=== PATIENT | male | born 1930 | race African-American/Black ===

== ENCOUNTER 2017-06-25 08:14 | Emergency (ER) | payer MEDICARE, OTHER ==
[~2017-06-25] VITALS: Ht 182.9 cm; Wt 90.7 kg
--- OUTSIDE RECORDS SUMMARY | 2017-06-25 08:17 | XMS REPORT | Clinical Summary ---
Author Author [facility] Address Unknown Phone Unavailable Care Team Providers Care Mathematical Scientist Name Role Phone Isaías Leyva MD PCP Allergies Active Allergy Reactions Severity Noted Date Comments Codeine Other (See Comments) 04/24/2016 Hallucinations Other Rash Low 04/04/2016 Paper tape - break out, gets bumps Current Medications Prescription Sig. Disp. Refills Start End Date Status Date finasteride (PROSCAR) 5 Take 5 mg by mouth daily. Active mg tablet finasteride (PROSCAR) 5 TK 1 T PO QD 12 05/26/19 01/06/20 Discontin mg tablet 17 17 ued oxybutynin (DITROPAN) 5 Take 1 tablet (5 mg 60 tablet 1 05/31/1902/08 MG tablet total) by mouth 2 (two) 17 17 times a day for 60 days. traMADol (ULTRAM) 50 mg Take 0.5 tablets (25 mg 40 tablet 0 06/22/19 07/07/19 tablet total) by mouth every 6 17 17 (six) hours as needed for moderate pain for up to 15 days. oxybutynin (DITROPAN) 5 10/06/19 01/06/20 Discontin MG tablet 17 17 ued clopidogrel (PLAVIX) 75 Take 1 tablet (75 mg 90 tablet 3 10/09/19 Discontin mg tablet total) by mouth daily. 17 17 ued oxybutynin (DITROPAN) 5 Take 5 mg by mouth 2 02/01/20 Discontin MG tablet (two) times a day. 17 ued DOXERCALCIFEROL (HECTOROL Infuse 1 Dose into a 03/23/20 Discontin IV) venous catheter 3 (three) 17 ued times a week. At dialysis IRON SUCROSE COMPLEX Infuse 1 Dose into a 04/30/19 Discontin (VENOFER IV) venous catheter once a 18 ued week. ipratropium (ATROVENT) Take 2.5 mL (0.5 mg 150 mL 0 02/01/20 Discontin 0.02 % nebulizer solution total) by nebulization 2 17 17 ued (two) times a day for 30 days. Lactobacillus Take 1 tablet by mouth 3 90 tablet 0 02/01/20 Discontin acidoph-L.bulgar (three) times a day for 17 17 ued (FLORANEX) 1 million cell 30 days. tablet acetylcysteine (MUCOMYST) Take 4 mL (400 mg total) 720 mL 0 02/01/20 03/23/20 Discontin 100 mg/mL (10 %) by nebulization every 4 17 17 ued nebulizer solution (four) hours for 30 days. budesonide (PULMICORT) Take 2 mL (0.5 mg total) 60 mL 0 02/01/2005/11 Discontin 0.5 mg/2 mL nebulizer by nebulization once 17 17 ued solution daily for 30 days. darbepoetin Inject 0.5 mL (100 mcg 2 mL 0 02/01/20 03/22/20 Discontin brandon-polysorbate total) under the skin 17 17 ued (ARANESP) 100 mcg/0.5 mL once a week at 4pm for 30 syringeIndications: ESRD days Indications: ESRD on on Dialysis Dialysis. ipratropium (ATROVENT) Take 2.5 mL (0.5 mg 300 mL 0 03/22/20 Discontin 0.02 % nebulizer solution total) by nebulization 17 18 ued every 6 (six) hours for 30 days. ondansetron (ZOFRAN) 4 Infuse 2 mL (4 mg total) 20 mL 03/22/20 Discontin mg/2 mL injection into a venous catheter 17 18 ued every 8 (eight) hours as needed for nausea or vomiting for up to 30 days. metoprolol (LOPRESSOR) 5 Infuse 2.5 mL (2.5 mg 300 mL 0 03/22/20 Discontin mg/5 mL injection total) into a venous 17 17 ued catheter every 6 (six) hours for 30 days. darbepoetin Inject 0.5 mL (100 mcg 2 mL 0 03/22/20 04/30/19 Discontin brandon-polysorbate total) under the skin 17 18 ued (ARANESP) 100 mcg/0.5 mL once a week at 4pm for 30 syringeIndications: ESRD days Indications: ESRD on on Dialysis Dialysis. hydrocortisone sodium Infuse 0.25 mL (12.5 mg 7.5 mL 0 03/23/20 Discontin succinate (Solu-CORTEF) total) into a venous 17 17 ued 100 mg/2 mL recon soln catheter daily for 30 days. budesonide (PULMICORT) Take 2 mL (0.5 mg total) 60 mL 0 03/22/2001/09 Discontin 0.5 mg/2 mL nebulizer by nebulization once 17 18 ued solution daily for 30 days. HEPARIN SODIUM,PORCINE Inject 1 mL (5,000 Units 60 mL 0 03/22/2001/09 Discontin (HEPARIN, PORCINE,) 5,000 total) under the skin 17 18 ued unit/mL injection every 12 (twelve) hours for 30 days. famotidine (PEPCID) 20 Infuse 1 mL (10 mg total) 30 mL 0 03/23/20 Discontin mg/2 mL solution into a venous catheter 17 18 ued daily for 30 days. insulin lispro (HumaLOG) Inject 0-5 Units under 10 mL 12 03/22/20 Discontin 100 unit/mL injection the skin every 4 (four) 17 18 ued hours for 30 days. sennosides (SENOKOT) 8.8 Take 10 mL (17.6 mg 600 mL 0 03/22/2004/30 Discontin mg/5 mL syrup total) by mouth 2 (two) 17 18 ued times a day for 30 days. piperacillin-tazobactam Infuse 2.25 g into a 03/22/20 04/01/20 (ZOSYN) IVPB 2.25 grams venous catheter every 8 17 17 Add-[place] in 50 mL (eight) hours for 10 days. TPN FOR DISCHARGE See most recent TPN 1 Package 0 03/22/20 04/30/19 Discontin order. 17 18 ued acetaminophen (TYLENOL) Take 20.3 mL (650 mg 04/30/19 05/30/19 650 mg/20.3 mL solution total) by mouth every 4 18 18 (four) hours as needed (pain and fever) for up to 30 days. ondansetron (ZOFRAN) 4 Infuse 2 mL (4 mg total) 20 mL 04/30/19 mg/2 mL injection into a venous catheter 18 18 every 8 (eight) hours as needed for nausea or vomiting for up to 30 days. ipratropium-albuterol Take 3 mL by nebulization 04/30/19 05/30/19 (DUO-NEB) 0.5-2.5 mg/mL every 6 (six) hours as 18 18 nebulizer needed for wheezing or shortness of breath for up to 30 days. metoprolol tartrate Take 1 tablet (25 mg 60 tablet 0 04/30/19 (LOPRESSOR) 25 mg tablet total) by mouth 2 (two) 18 18 times a day for 30 days. apixaban (ELIQUIS) 2.5 mg Take 1 tablet (2.5 mg 60 tablet 0 04/30/19 05/30/19 tablet total) by mouth 2 (two) 18 18 times a day for 30 days. budesonide (PULMICORT) Take 2 mL (0.5 mg total) 60 mL 0 04/30/1912/09 0.5 mg/2 mL nebulizer by nebulization once 18 18 solution daily for 30 days. famotidine (PEPCID) 20 Infuse 1 mL (10 mg total) 30 mL 0 04/30/19 mg/2 mL solution into a venous catheter 18 18 daily for 30 days. polyethylene glycol Take 17 g by mouth 2 60 packet 0 04/30/19 (MIRALAX) 17 gram packet (two) times a day for 30 18 18 days. acetylcysteine (MUCOMYST) Take 4 mL by nebulization 04/30/19 05/30/19 200 mg/mL (20 %) 2 (two) times a day for 18 18 nebulizer solution 30 days. 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 Hyperglycemia 02/27/2017 Electrolyte and fluid disorder 02/27/2017 Moderate protein-calorie malnutrition 02/27/2017 Chronic respiratory failure 02/27/2017 Mobitz (type) I (Wenckebach's) atrioventricular block 02/27/2017 Bradycardia 02/27/2017 Pneumoperitoneum 02/24/[address] 01/29/2017 Sinus bradycardia 01/26/2017 Mucus plugging of bronchi 01/22/2017 Severe protein-calorie malnutrition 01/22/2017 Pneumothorax on right 01/22/2017 A-fib 01/17/2017 Hypophosphatemia 01/16/2017 Hematoma of right lower extremity 01/15/2017 Hx of aortic valve replacement 01/15/2017 Encephalopathy 01/09/2017 Atherosclerosis 01/09/2017 Altered mental status, unspecified 01/08/2017 Acute on chronic respiratory failure with hypercapnia 01/08/2017 Septic shock 01/08/2017 Leukocytosis 01/08/2017 Delirium 01/05/2017 Bladder tumor 04/12/2016 Gross hematuria 04/09/2016 Pleural effusion, right 04/05/2016 L BCV occluded around TDC, R BCV occlusion, L axillary vein with occluded stents 2015 L brach artery mild stenosis, R ulnar artery occlusion 03/11/2016 Essential hypertension 11/08/2015 Anemia in chronic kidney disease 11/08/2015 ESRD (end stage renal disease) on dialysis 2004, TTS 11/07/2015 Last Assessment & Plan: E. R arm swelling, s/p insertion of L arm HeRO 06/20/16. I advised pt to wear a compression sleeve and other lymphedema treatments for his arm. Rx Plavix, if he could tolerate it. 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 Given previous R pleural effusion and bladder tumor, will do CT of the chest. 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 01/15/2017 Lactic acidosis 01/08/2017 01/15/2017 End stage renal disease 04/04/2016 10/08/2016 Encounters Date Type Specialty Care Team Description 04/16/2017 Anesthesia Cardiothoracic Surgery Kendra Castellanos, METAL MOULDER Event 04/16/2017 Procedure Pass Cardiothoracic Surgery 04/16/2017 Surgery Cardiothoracic Surgery Adeline Chahal MD VENOGRAM, EXTREMITY possible angioplasty possible stent right upper extremity 04/15/2017 Hospital Critical Care Medicine Jose E Huizar MD SVC syndrome (Primary Dx) - Encounter 04/30/2017 02/23/2017 [facility] Critical Care Medicine Sheryl Palm MD Acute respiratory failure - Encounter with hypercapnia (Primary 03/23/2017 Dx) 02/20/2017 Telephone Cardiovascular Adeline Chahal MD 01/29/2017 Anesthesia Critical Care Medicine Shayy Mcdaniel MD Event 01/29/2017 Procedure Pass Plastic Surgery 01/29/2017 Surgery Plastic Surgery Toshia Ordonez, BEDSIDE TRACHEOSTOMY MD 01/13/2017 Anesthesia Critical Care Medicine Micheal Das, Event METAL MOULDER 01/13/2017 Procedure Pass Cardiothoracic Surgery 01/13/2017 Surgery Cardiothoracic Surgery Adeline Chahal MD PLACEMENT , FILTER, INFERIOR VENA CAVA 01/10/2017 Procedure Pass Critical Care Medicine 01/05/2017 [facility] Critical Care Medicine Arturo Foster MD ESRD ( end stage renal - Encounter Sheryl Palm MD disease) on dialysis 01/31/20172004, TTS (Primary Dx); Delirium; ESRD (end stage renal disease); Acute respiratory failure with hypercapnia; Lactic acidosis; Septic shock; Leukocytosis, unspecified type; Essential hypertension; Altered mental status, unspecified; Anemia in chronic kidney disease; Superior vena cava obstruction; Gross hematuria; Acute bleeding; Encephalopathy 10/12/2016 Hospital Radiology Gonzales Null MD ESRD (end stage renal Encounter disease) on dialysis 2004, TTS 10/12/2016 Ancillary Cardiovascular Gonzales Null MD ESRD (end stage renal Orders disease) on dialysis 2004, TTS 10/12/2016 Orders Only Cardiovascular Gonzales Null MD Pleural effusion (Primary Dx) 10/08/2016 Lab Lab Gonzales Null MD End stage renal disease (Primary Dx); Encounter for extracorporeal dialysis 10/08/2016 Office Visit Gonzales Blanc MD ESRD ( end stage renal disease) on dialysis 2004, TTS (Primary Dx) 09/27/2016 Telephone Gonzales Blanc MD 09/27/2016 Orders Only Cardiovascular Gonzales Null MD Arm swelling (Primary Dx) 07/23/2016 Hospital Radiology Felipe [place], 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 07/23/2016 Office Visit Cardiovascular Gavino Wang, Acute pain of left PLANT CARE WORKER 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 (Primary Dx) after 06/24/2016 Family History Relation Name Status Comments Mother Social History Tobacco Use Types Packs/Day Years Used Date Former Smoker Smokeless Tobacco: Never Used Comments: only smoked briefly and stopped smoking many years ago per pt, cannot remember Alcohol Use Drinks/Week oz/Week Comments No Sex Assigned at Date Recorded Not on file Last Filed Vital Signs Vital Sign Reading Time Taken Blood Pressure 106/49 04/30/2017 6:07 PM [employer] [employer] Pulse 90 04/30/2017 6:07 PM [employer] [employer] Temperature 36.2 C (97.2 F) 04/30/2017 4:30 PM [employer] [employer] Respiratory Rate 21 04/30/2017 5:00 PM [employer] Oxygen Saturation 100% 04/30/2017 5:00 PM [employer] [employer] Inhaled Oxygen - - Concentration Weight 72.7 kg (160 lb 4.4 oz) 04/30/2017 5:00 AM [employer] [employer] Height 182.9 cm (6') 04/15/2017 9:30 PM [employer] [employer] Body Mass Index 21.74 04/30/2017 5:00 AM [employer] [employer] Plan of Treatment Health Maintenance Due Date Last Done Comments ZOSTER VACCINE 1990 PNEUMOCOCCAL 1995 POLYSACCHARIDE VACCINE AGE 65 AND OVER PNEUMOCOCCAL-13 1995 INFLUENZA VACCINE 11/20/2016 Implants Implanted Type Area Senior Database Engineer Device Expiration Model / Identifier Date Serial / Lot Super Hero Ally Revision Kit Balloon Left: Arm, [employer] 2017 [id number] / Implanted: Qty: 1 on 06/20/2016 by [employer] / Gonzales Null MD s [id number] Clip Ligtng Weck Hemoclip Plus W/ Medical Left: Arm, TELEFLEX 2020 [id number] / Tape Ti Med - [id number] Clips for Upper MEDICAL / Implanted: Qty: 2 on 04/04/2016 by Internal [id number] Gonzales Null MD Use Clip Ligtng Weck Hemoclip Plus W/ Medical Left: Arm, WECK CLOSURE [id number] / Tape Ti Sm - [id number] Clips for Upper SYSTEMS / Implanted: Qty: 2 on 04/04/2016 by Internal [id number] Gonzales Null MD Use Clip Ligtng Weck Hemoclip Plus W/ Medical Left: Arm, TELEFLEX 2020 [id number] / Tape Ti Med - [id number] Clips for Upper MEDICAL / Implanted: Qty: 1 on 06/20/2016 by Internal [id number] Gonzales Null MD Use Clip Ligtng Weck Hemoclip Plus W/ Medical Left: Arm, WECK CLOSURE 04/2020 [id number] / Tape Ti Sm - [id number] Clips for Upper SYSTEMS / Implanted: Qty: 1 on 06/20/2016 by Internal [id number] Gonzales Null MD Use Catheter Cv Powerline Dlmn Al 6fr - Surgical N/A: N/A BARD ACCESS [id number] / [id number] Implants; SYSTEMS / Implanted: 03/11/2017 (Quantity not Expanders; on file) Extenders; Surgical Wires Catheter Angio Snuff Grinder Ii 5fr 65cm Surgical [facility] PERIPHERAL [id number] Selc Braidd Torque Eliezer - [id number] Implants; INTERVENTION / Implanted: Qty: 1 on 04/16/2017 by Expanders; DIOR HERRERA / Adeline Chahal MD Extenders; [id number] Surgical Wires Catheter Angio Snuff Grinder Ii 5fr 100cm Surgical [facility] PERIPHERAL [id number] Selc Braidd Torque Eliezer - [id number] Implants; INTERVENTION / Implanted: Qty: 1 on 04/16/2017 by Expanders; VASCULAR JAVIER / Adeline Chahal MD Extenders; [id number] Surgical Wires Catheter Compliance Representative 4x75cm 12mm Conquest - Surgical BARD PERIPHERAL [id number] / [id number] Implants; VASCULAR / Implanted: Qty: 1 on 04/16/2017 by Expanders; [id number] Adeline Chahal MD Extenders; Surgical Wires Catheter Compliance Representative 6.5fr 75x4cm 14mm Surgical BARD PERIPHERAL [id number] / [place] - [id number] Implants; VASCULAR / Implanted: Qty: 1 on 04/16/2017 by Expanders; [id number] Adeline Chahal MD Extenders; Surgical Wires Stent Bili [id number] 8x60mm W/ Surgical Left: BARD PERIPHERAL 2016 [id number] / Cath 80cm - [id number] Stents Thigh VASCULAR / Implanted: 11/08/2015 (Quantity not [id number] on file) Cook Celect Isabela Navalign Vascular N/A: N/A COOK PERIPHERAL 10/23 [id number] / Femoral Vena Cava Filter - Filter INTERVENTION / [id number] Implanted: Qty: 1 on 01/13/2017 by Adeline Chahal MD Graft Vasclr Acuseal 40cm 6mm - Vascular Left: Arm, W L GORE 2018 [id number] Graft Upper / Implanted: 06/20/2016 (Quantity not [id number] on file) [id number] Component Chang Otflw Hero - Vascular Left: Arm, [employer] 2017 HERO 1001 [id number] Graft Upper SYSTEMS INC / Implanted: 06/20/2016 (Quantity not / on file) [id number] Valve 8mm X 4cm Balloon, 6fr Sheath, 75cm [place] PERIPHERAL 02/20/2020 [id number] / [place], Cnquest 40 Compliance Representative Dilatation VASCULAR INC / Catheter [id number] Implanted: Qty: 1 on 04/16/2017 by Adeline Chahal MD 4mm X 100mm Balloon, 135cm Shaft, [place] [id number] [place] Otw Compliance Representative Balloon Dilatation SCIENTIFIC/CARMEN [id number] / Catheter, 0.035in Max Guidewire PHERAL VASCULAR / Implanted: Qty: 1 on 04/16/2017 by ([employer]) Adeline Chahal MD Procedures Procedure Name Priority Date/Time Associated Diagnosis Comments HEMODIALYSIS Routine 04/30/2017 8:51 AM [facility] [employer] HEMODIALYSIS Routine 04/27/2017 11:27 AM [employer] [employer] HEMODIALYSIS Routine 04/25/2017 8:23 AM [employer] HEMODIALYSIS Routine 04/23/2017 9:24 AM [employer] [employer] HEMODIALYSIS Routine 04/20/2017 7:27 AM [employer] HEMODIALYSIS Routine 04/18/2017 8:30 AM [employer] CONSULT TO OSTOMY CARE Routine 04/17/2017 NURSE 10:49 AM [employer] HEMODIALYSIS Routine 04/16/2017 12:20 PM [employer] [employer] HEMODIALYSIS Routine 03/23/2017 9:57 AM [employer] HEMODIALYSIS Routine 03/21/2017 12:15 PM [employer] HEMODIALYSIS Routine 03/19/2017 8:06 AM [employer] HEMODIALYSIS Routine 03/16/2017 2:21 PM [employer] HEMODIALYSIS Routine 03/13/2017 5:39 PM [employer] [employer] HEMODIALYSIS Routine 03/11/2017 7:30 AM [employer] [employer] HEMODIALYSIS Routine 03/08/2017 8:19 AM [employer] BRONCHOSCOPY Routine 03/08/2017 Acute respiratory failure Results for this 1:40 AM [employer] with hypercapnia procedure are in the results section. HEMODIALYSIS Routine 03/06/2017 8:28 AM [employer] [employer] HEMODIALYSIS Routine 03/04/2017 8:06 AM [employer] [employer] HEMODIALYSIS Routine 03/02/2017 8:55 AM [employer] [employer] HEMODIALYSIS Routine 02/28/2017 11:29 AM [employer] [employer] HEMODIALYSIS Routine 02/26/2017 12:58 PM [employer] [employer] HEMODIALYSIS Routine 01/30/2017 1:37 PM CDT HEMODIALYSIS Routine 01/30/2017 1:03 PM CDT BEDSIDE TRACHEOSTOMY 01/29/2017 Respiratory Failure 11:15 AM CDT HEMODIALYSIS Routine 01/28/2017 1:18 PM CDT HEMODIALYSIS Routine 01/25/2017 11:33 AM CDT HEMODIALYSIS Routine 01/23/2017 8:58 AM CDT BRONCHOSCOPY Routine 01/22/2017 Acute respiratory failure Results for this 1:12 PM CDT with hypercapnia procedure are in the results section. BRONCHOSCOPY Routine 01/21/2017 Acute respiratory Results for this 6:48 PM CDT failure, unspecified procedure are in the whether with hypoxia or results section. hypercapnia HEMODIALYSIS Routine 01/21/2017 7:43 AM CDT HEMODIALYSIS Routine 01/18/2017 7:53 AM CDT HEMODIALYSIS Routine 01/16/2017 10:28 AM CDT AK INSERT NON-TUNNEL CV Routine 01/15/2017 ESRD (end stage renal Results for this CATH 10:07 PM CDT disease) on dialysis procedure are in the 2005, TTS results section. AK INSERT NON-TUNNEL CV Routine 01/15/2017 Acute respiratory failure Results for this CATH 4:42 PM CDT with hypercapnia procedure are in the results section. INTUBATION Routine 01/14/2017 Acute respiratory failure Results for this 6:50 PM CDT with hypercapnia procedure are in the ESRD (end stage renal results section. disease) on dialysis 2004, TTS Altered mental status, unspecified Acute bleeding Encephalopathy AK INSERT Routine 01/14/2017 Septic shock Results for this NEEDLE,INTRAOSSEOUS 6:07 PM CDT procedure are in the INFUSN results section. HEMODIALYSIS Routine 01/14/2017 9:58 AM CDT HEMODIALYSIS Routine 01/12/2017 4:53 PM CDT HEMODIALYSIS Routine 01/10/2017 11:03 AM CDT ECHOCARDIOGRAM 2D Routine 01/09/2017 Results for this COMPLETE W MMODE SPECTRAL 4:09 PM CDT procedure are in the COLOR DOPPLER (02468) results section. AK INSERT NON-TUNNEL CV Routine 01/08/2017 Delirium Results for this CATH 9:10 PM CDT Acute respiratory failure procedure are in the with hypercapnia results section. Lactic acidosis Septic shock Leukocytosis, unspecified type ESRD (end stage renal disease) on dialysis 2005, TTS Essential hypertension HEMODIALYSIS Routine 01/08/2017 9:40 AM CDT after 06/24/2016 Results * POC glucose (04/30/2017 4:42 PM) Only the most recent of 395 results within the time period is included. Component Value Ref Range POC glucose 108 (H) 65 - 99 mg/dL Comment: [facility] Notified RN Meter ID: [id number] Pest Control Applicator: Crispin Angelo Specimen Performing Laboratory [facility] DEPARTMENT OF PATHOLOGY AND GENOMIC MEDICINE [address] [place] [id number] * Estimated GFR (04/30/2017 3:30 AM) Only the most recent of 82 results within the time period is included. Component Value Ref Range GFR Non Af Amer 17 (A) mL/min/1.73 m2 GFR Af Amer 21 (A) mL/min/1.73 m2 Comment: Chronic kidney disease: <60 mL/min/1.73m2 Kidney failure: <15 mL/min/1.73m2 The estimated GFR is calculated from the IDMS-traceable Modification of Diet in Renal Disease Equation. The accuracy of the calculation is poor when the creatinine is normal. Calculated values >90 mL/min/1.73m2 are not reported. This equation has not been validated in children (<18 years), women, the elderly (>70 years), or ethnic groups other than Caucasians and Americans. Specimen Performing Laboratory Plasma specimen [facility] DEPARTMENT OF PATHOLOGY AND GENOMIC MEDICINE [address] [place] [phone] * CBC with platelet and differential (04/30/2017 3:30 AM) Only the most recent of 74 results within the time period is included. Component Value Ref Range WBC 10.12 4.50 - 11.00 k/uL RBC 3.16 (L) 4.40 - 6.00 m/uL HGB 9.0 (L) 14.0 - 18.0 g/dL HCT 30.1 (L) 41.0 - 51.0 % MCV 95.3 82.0 - 100.0 fL MCH 28.5 27.0 - 34.0 pg MCHC 29.9 (L) 31.0 - 37.0 g/dL RDW - SD 57.4 (H) 37.0 - 55.0 fL MPV 10.3 8.8 - 13.2 fL Platelet count 178 150 - 400 k/uL Nucleated RBC 0.00 /100 WBC Neutrophils 69.3 (H) 39.0 - 69.0 % Lymphocytes 16.4 (L) 25.0 - 45.0 % Monocytes 7.5 0.0 - 10.0 % Eosinophils 6.4 (H) 0.0 - 5.0 % Basophils 0.1 0.0 - 1.0 % Immature granulocytes 0.3Comment: "Immature granulocytes" 0.0 - 1.0 % (promyelocytes, myelocytes, metamyelocytes) Specimen Performing Laboratory Blood [facility] DEPARTMENT OF PATHOLOGY AND [facility] MEDICINE [address] [place], [place] [id number] * Phosphorus level (04/30/2017 3:30 AM) Only the most recent of 70 results within the time period is included. Component Value Ref Range Phosphorus 4.1 2.4 - 4.5 mg/dL Specimen Performing Laboratory Plasma specimen [facility] DEPARTMENT OF PATHOLOGY AND [place] [id number] * Magnesium level (04/30/2017 3:30 AM) Only the most recent of 66 results within the time period is included. Component Value Ref Range Magnesium 1.9 1.6 - 2.4 mg/dL Specimen Performing Laboratory Plasma specimen [facility] DEPARTMENT OF PATHOLOGY AND [facility] [address] [place], [place] [id number] * Ionized calcium (04/30/2017 3:30 AM) Only the most recent of 21 results within the time period is included. Component Value Ref Range pH 7.33 Ionized calcium 1.09 (L) 1.11 - 1.32 mmol/L Specimen Performing Laboratory Plasma specimen [facility] DEPARTMENT OF PATHOLOGY AND [facility] [address] [place], [place] [id number] * Basic metabolic panel (04/30/2017 3:30 AM) Only the most recent of 72 results within the time period is included. Component Value Ref Range Sodium 126 (L) 135 - 148 mEq/L Potassium 4.0 3.5 - 5.0 mEq/L Chloride 88 (L) 98 - 112 mEq/L CO2 29 24 - 31 mEq/L Anion gap 9 7 - 15 mEq/L Comment: Starting from July , anion gap calculation no longer incorporates potassium. Please note the change. BUN 31 (H) 8 - 23 mg/dL Creatinine 3.4 (H) 0.7 - 1.2 mg/dL Glucose 108 (H) 65 - 99 mg/dL Calcium 7.7 (L) 8.8 - 10.2 mg/dL Specimen Performing Laboratory Plasma specimen [facility] DEPARTMENT OF PATHOLOGY AND GENOMIC MEDICINE [address] [place] [address] * XR Chest 1 Vw Portable (04/26/2017 10:03 AM) Only the most recent of 37 results within the time period is included. Specimen Performing Laboratory [facility] [address] [place] [address] Narrative EXAMINATION:XR CHEST 1 VW PORTABLE CLINICAL HISTORY:Post-op surgery, SHORTNESS OF BREATH COMPARISON:04/23/2017 IMPRESSION: 1.Sternotomy wires are present.The patient is status post aortic valve replacement. 2.Left IJ catheter extends into the right atrium. The tracheostomy tube remains in satisfactory position. 3.The heart size is at the upper limits of normal.The aorta is atherosclerotic. 4.Vascular congestion has improved. There is improved aeration in the right lung. Right basilar volume loss and effusion are decreased. There is minimal volume loss at the left lung base with a tiny left pleural effusion. [facility]-[id number] Procedure Note Interface, Radiology Results Incoming - 04/26/2017 10:23 AM [facility] [employer] EXAMINATION: XR CHEST 1 VW PORTABLE CLINICAL HISTORY: Post-op surgery, SHORTNESS OF BREATH COMPARISON: 04/23/2017 IMPRESSION: 1. Sternotomy wires are present. The patient is status post aortic valve replacement. 2. Left IJ catheter extends into the right atrium. The tracheostomy tube remains in satisfactory position. 3. The heart size is at the upper limits of normal. The aorta is atherosclerotic. 4. Vascular congestion has improved. There is improved aeration in the right lung. Right basilar volume loss and effusion are decreased. There is minimal volume loss at the left lung base with a tiny left pleural effusion. [facility]-[id number] * Venous blood gas (04/26/2017 5:00 AM) Only the most recent of 8 results within the time period is included. Component Value Ref Range pH, venous 7.39 7.32 - 7.42 pCO2, venous 53 (H) 45 - 51 mmHg pO2, venous 28 25 - 40 mmHg Base excess, venous 6 (H) -2 - 2 meq/L O2 saturation, venous 56 40 - 70 % Bicarbonate, venous 31.2 (H) 21.0 - 28.0 mmol/L Specimen Performing Laboratory Blood [facility] DEPARTMENT OF PATHOLOGY AND GENOMIC MEDICINE [address] [place] [address] * Sputum culture (04/24/2017 11:15 PM) Only the most recent of 6 results within the time period is included. Component Value Ref Range Sputum culture isolate Normal oral colleen isolated. Comment: Specimen Information Specimen Source: Sputum Specimen Site: Expectorated Specimen Performing Laboratory Sputum - Expectorated [facility] DEPARTMENT OF PATHOLOGY AND GENOMIC MEDICINE [address] [place] [address] * Gram stain (04/24/2017 11:15 PM) Only the most recent of 10 results within the time period is included. Component Value Ref Range Gram stain isolate No WBC's Few Gram positive rods Comment: Specimen Information Specimen Source: Sputum Specimen Site: Expectorated Specimen Performing Laboratory Sputum - Expectorated [facility] DEPARTMENT OF PATHOLOGY AND GENOMIC MEDICINE [address] [place] [address] * XR Abdomen 1 Vw Portable (04/22/2017 7:23 PM) Only the most recent of 16 results within the time period is included. Specimen Performing Laboratory [facility] [address] [place] [address] Narrative EXAMINATION:XR ABDOMEN 1 VW PORTABLE CLINICAL HISTORY:CONSTIPATION, Vomiting COMPARISON:03/17/2017 IMPRESSION: The bowel gas pattern is nonspecific. Moderate fecal material in the right colon. Gaseous left colon and rectum. Gaseous loops of central small bowel loops also noted. Findings are suggestive of ileus though early bowel obstruction not excluded. IVC filter is present. Right femoral catheter. Degenerative changes of osseous structures. [facility]-[id number] Procedure Note Hm Interface, Radiology Results Incoming - 04/22/2017 7:58 PM DRAPERY HEMMER AUTOMATIC EXAMINATION: XR ABDOMEN 1 VW PORTABLE CLINICAL HISTORY: CONSTIPATION, Vomiting COMPARISON: 03/17/2017 IMPRESSION: The bowel gas pattern is nonspecific. Moderate fecal material in the right colon. Gaseous left colon and rectum. Gaseous loops of central small bowel loops also noted. Findings are suggestive of ileus though early bowel obstruction not excluded. IVC filter is present. Right femoral catheter. Degenerative changes of osseous structures. [facility]-[id number] * Partial thromboplastin time, activated (04/21/2017 3:00 AM) Only the most recent of 26 results within the time period is included. Component Value Ref Range PTT 40.4 (H) 23.0 - 36.0 sec Comment: PTT therapeutic range for unfractionated heparin is 61.0-112.0 seconds which corresponds to Anti-Xa 0.3-0.7 U/ml. Specimen Performing Laboratory Blood [facility] DEPARTMENT OF PATHOLOGY AND [facility] [address] [place] [address] * CBC hemogram (04/17/2017 3:30 AM) Only the most recent of 8 results within the time period is included. Component Value Ref Range WBC 6.17 4.50 - 11.00 k/uL RBC 2.78 (L) 4.40 - 6.00 m/uL HGB 8.2 (L) 14.0 - 18.0 g/dL HCT 26.6 (L) 41.0 - 51.0 % MCV 95.7 82.0 - 100.0 fL MCH 29.5 27.0 - 34.0 pg MCHC 30.8 (L) 31.0 - 37.0 g/dL RDW - SD 61.1 (H) 37.0 - 55.0 fL MPV 10.0 8.8 - 13.2 fL Platelet count 180 150 - 400 k/uL Nucleated RBC 0.00 /100 WBC Specimen Performing Laboratory Blood [facility] DEPARTMENT OF PATHOLOGY AND GENOMIC MEDICINE [address] [place] [address] * Anti Xa, low molecular weight (04/16/2017 8:52 PM) Component Value Ref Range Heparin name Lovenox Anti Xa, low molecular 0.34 (L) 0.60 - 1.00 U/mL weight Comment: Specimen must be drawn at least 4 hours post dose following a minimum of 3 doses. Therapeutic Range: 0.60 - 1.00 U/mL Specimen Performing Laboratory Blood [facility] DEPARTMENT OF PATHOLOGY AND GENOMIC MEDICINE [address] [place] [address] * Pv duplex venous upper extremity (04/16/2017 8:44 PM) Only the most recent of 3 results within the time period is included. Specimen Performing Laboratory [facility] [id number] [facility]. [place] [id number] Narrative Vascular Ultrasound Laboratory Upper Extremity Venous Report [id number] [facility] [address], [place] [id number] Pat.Name:SHARAD FONTAINE Pat.ID:[id number] St.Date: 04/16/2017Refer.MD:JOSE E HUIZAR MD Exam Time: 8:13:00 PMStudy Type:UE Venous Height:73inDOBAge:1930,86Y Sex: MALESonogrphr: Preeti Anand RVT Pat. Stat.:Inpatient Room:[place] [address] TapeVol: , CPT - 4: 60718 Echo Event ID:[id number] Order ID:[id number] Reason for Study:Bilateral arm swelling. 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 Race:B SUMMARY: DUPLEX SCAN OBSERVATIONS Right Left IJPartial Partial SubclavianObstructed Normal AxillaryPartialNot Visualized BrachialNormal Normal BasilicNot Visualized Not Visualized CephalicNot Visualized Not Visualized RIGHT:The internal jugular vein is small and partially compressible with echogenic material within the lumen. Colorflow and Doppler signals are decreased. The subclavian vein is non-compressible with echogenic material filling the lumen and colorflow and Doppler signals are absent. There is normal compressibility with colorflow and Doppler signals noted in the remaining visualized veins. Multiple grafts are noted. LEFT:The internal jugular vein is small and partially compressible with echogenic material within the lumen. Colorflow and Doppler signals are decreased. The axillary, cephalic and basilic vein are not visualized.There is normal compressibility with colorflow and Doppler signals noted in the remaining visualized veins. Multiple grafts are noted. PRELIMINARY FINDINGS 1. Partial deep venous thrombosis of the internal jugular vein,bilaterally. 2. Partial deep venous thrombosis of the right axillary vein. 3. 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 Results given to NETO Roa at 8:22 pm on 04/16/17. PHYSICIAN INTERPRETATION Venous examination of the both upper extremities and neck demonstratedbilateral partial deep venous thrombosis of the internal jugular vein, a partial deep venous thrombosis of the right axillary vein and adeep venous thrombosis of the right subclavian vein. Signed 04/17/2017 10:41 AM Adeline Chahal MD, RPVI Procedure Note Interface, Radiology Results In - 04/17/2017 10:41 AM [facility] Vascular Ultrasound Laboratory Upper Extremity Venous Report [id number] [place] [address] Pat.Name: SHARAD FONTAINE Pat.ID: [id number] .Date: 04/16/2017 Refer.MD: JOSE E HUIZAR MD Exam Time: 8:13:00 PM Study Type:UE Venous Height: 73in Age: 1 1930,86Y Sex: MALE Sonogrphr: Preeti Anand RVT Pat. Stat.:Inpatient Room: [place] [address] Tape Vol: RF, CPT - 4: 95194 Echo Event ID:[id number] Order ID: [id number] Reason for Study:Bilateral arm swelling. History of ESRD with ARTHUR MYERS (06/2016), DVT s/p IVC filter (12/2016), paroxysmal afib. Race: B SUMMARY: DUPLEX SCAN OBSERVATIONS Right Left IJ Partial Partial Subclavian Obstructed Normal Axillary Partial Not Visualized Brachial Normal Normal Basilic Not Visualized Not Visualized Cephalic Not Visualized Not Visualized RIGHT: The internal jugular vein is small and partially compressible with echogenic material within the lumen. Colorflow and Doppler signals are decreased. The subclavian vein is non-compressible with echogenic material filling the lumen and colorflow and Doppler signals are absent. There is normal compressibility with colorflow and Doppler signals noted in the remaining visualized veins. Multiple grafts are noted. LEFT: The internal jugular vein is small and partially compressible with echogenic material within the lumen. Colorflow and Doppler signals are decreased. The axillary, cephalic and basilic vein are not visualized. There is normal compressibility with colorflow and Doppler signals noted in the remaining visualized veins. Multiple grafts are noted. PRELIMINARY FINDINGS 1. Partial deep venous thrombosis of the internal jugular vein,bilaterally. 2. Partial deep venous thrombosis of the right axillary vein. 3. 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 Results given to NETO Roa at 8:22 pm on 04/16/17. PHYSICIAN INTERPRETATION Venous examination of the both upper extremities and neck demonstrated bilateral partial deep venous thrombosis of the internal jugular vein, a partial deep venous thrombosis of the right axillary vein and a deep venous thrombosis of the right subclavian vein. Signed 04/17/2017 10:41 AM Adeline Chahal MD, RPVI * Hepatitis B surface antigen (04/16/2017 1:18 PM) Only the most recent of 3 results within the time period is included. Component Value Ref Range Hepatitis B surface Ag Non-reactive Non-reactive Specimen Performing Laboratory Blood [facility] DEPARTMENT OF PATHOLOGY AND GENOMIC MEDICINE [address] [place] [address] * ECG 12 lead (04/16/2017 12:59 PM) Only the most recent of 13 results within the time period is included. Component Value Ref Range Ventricular rate 72 Atrial rate 72 AK interval 152 QRSD interval 104 QT interval 440 QTC interval 481 P axis 1 15 QRS axis 1 18 T wave axis 71 EKG impression Normal sinus rhythm with sinus arrhythmia-Possible Left atrial enlargement-Prolonged QT-Abnormal ECG-In automated comparison with ECG of 15-APR-2017 23:40,-Sinus rhythm has replaced Atrial fibrillation-Nonspecific T wave abnormality no longer evident in Anterior leads- Specimen Performing Laboratory [facility] MUSE [address] [place] [address] * Prothrombin time with INR (04/16/2017 11:57 AM) Only the most recent of 17 results within the time period is included. Component Value Ref Range Prothrombin time 15.7 (H) 12.0 - 15.0 sec INR 1.2 Comment: The International Normalized Ratio (INR) is a therapeutic monitoring tool for patients who are stable on oral anticoagulant therapy. An INR of 2.0-3.0 is suggested for deep vein thrombosis/pulmonary embolism. Specimen Performing Laboratory Blood [facility] [place] [address] * Prepare RBC (04/16/2017 2:54 AM) Only the most recent of 6 results within the time period is included. Component Value Ref Range Product name Apheresis Red Cell AS3 #1 LR Unit number [id number] Product code [id number] Dispense status Returned to BB not transfused Blood expiration date 20170506 Blood type code 5100 Blood type O POSITIVE Product name Red Blood Cells -1, Leukored Unit number [id number] Product code [id number] Dispense status Returned to BB not transfused Blood expiration date 20170506 Blood type code 5100 Blood type O POSITIVE Specimen Performing Laboratory [facility] [place] [address] * Type and screen (04/16/2017 2:54 AM) Only the most recent of 5 results within the time period is included. Component Value Ref Range ABO grouping O Rh type POS Antibody screen (gel) NEG Specimen Performing Laboratory Blood [facility] [place] [address] * Anti Xa, unfractionated (04/15/2017 10:55 PM) Component Value Ref Range Anti Xa, unfractionated 0.78 (H) 0.30 - 0.70 U/mL Comment: Therapeutic Range: 0.30 - 0.70 U/mL XAUFH results called to and read back by ABHIJIT UGALDE/MONSE at 04/15/2017 23:37 by [facility]. Specimen Performing Laboratory Blood [facility] DEPARTMENT OF PATHOLOGY AND [facility] [address] [place] [address] * FL Esophagram Complete (03/19/2017 5:11 PM) Specimen Performing [facility] [address] [place] [address] Narrative EXAMINATION:FL ESOPHAGRAM COMPLETE CLINICAL HISTORY:DYSPHAGIARETROSTERNALNOT IMMUNE COMPROMISED, massive reflux with nothing out G-tubedefine anotomy COMPARISON:None. Fluoroscopy time: 0.8 minutes FINDINGS: The exam is suboptimal due to patient medical condition and performed in semiupright upper position. Barium was administered through a syringe. The patient swallowed barium without difficulty. The esophagus demonstrates tertiary motility. No focal mucosal abnormality is identified. There is no evidence of stricture. The esophagogastric junction is unremarkable. There is marked gastroesophageal reflux. IMPRESSION: Presbyesophagus. Marked gastroesophageal reflux. [facility]-[id number] Procedure Note Interface, Radiology Results Incoming - 03/19/2017 7:25 PM DRAPERY HEMMER AUTOMATIC EXAMINATION: FL ESOPHAGRAM COMPLETE CLINICAL HISTORY: DYSPHAGIA RETROSTERNAL NOT IMMUNE COMPROMISED, massive reflux with nothing out G-tube define anotomy COMPARISON: None. Fluoroscopy time: 0.8 minutes FINDINGS: The exam is suboptimal due to patient medical condition and performed in semiupright upper position. Barium was administered through a syringe. The patient swallowed barium without difficulty. The esophagus demonstrates tertiary motility. No focal mucosal abnormality is identified. There is no evidence of stricture. The esophagogastric junction is unremarkable. There is marked gastroesophageal reflux. IMPRESSION: Presbyesophagus. Marked gastroesophageal reflux. [facility]-[id number] * FL Small Bowel Series (03/18/2017 6:54 AM) Specimen Performing Laboratory [facility] [address] [place] [address] Narrative EXAMINATION:FL SMALL BOWEL CLINICAL HISTORY:Bowel obstruction COMPARISON:CT March 10, 2017 TECHNIQUE: SMALL BOWEL SERIES was performed with barium. FLUOROSCOPIC TIME:None IMPRESSION: [employer] Education Teacher radiograph demonstrates small bowel dilatation measuring up to 5 cm in diameter. Large amount of stool is seen in the rectum. IVC filter and right femoral catheter are in place. Multiple overhead radiographs obtained at varying time intervals out to 17 hours show slow transit, decompressed colon likely partially opacified on the 17 hour image though visualization is difficult due to contrast dilution. Overall, the findings suggest high-grade distal SBO. [facility]-[id number] Procedure Note Interface, Radiology Results Incoming - 03/25/2017 9:00 AM DRAP[facility] HEMMER AUTOMATIC EXAMINATION: FL SMALL BOWEL CLINICAL HISTORY: Bowel obstruction COMPARISON: CT March 10, 2017 TECHNIQUE: SMALL BOWEL SERIES was performed with barium. FLUOROSCOPIC TIME: None IMPRESSION: Industrial Technology Education Teacher radiograph demonstrates small bowel dilatation measuring up to 5 cm in diameter. Large amount of stool is seen in the rectum. IVC filter and right femoral catheter are in place. Multiple overhead radiographs obtained at varying time intervals out to 17 hours show slow transit, decompressed colon likely partially opacified on the 17 hour image though visualization is difficult due to contrast dilution. Overall, the findings suggest high-grade distal SBO. [facility]-[id number] * Blood culture, aerobic & anaerobic (03/17/2017 11:00 AM) Only the most recent of 9 results within the time period is included. Component Value Ref Range Blood culture isolate No growth after 5 days of incubation. Comment: Specimen Information Specimen Source: Blood Specimen Site: Hand, right Specimen Performing Laboratory Blood - Hand, right [facility] DEPARTMENT OF PATHOLOGY AND [facility] [address] [place] [address] * C difficile toxin (03/17/2017 10:39 AM) Only the most recent of 4 results within the time period is included. Component Value Ref Range Clostridium difficile No Clostridium difficle toxin present toxin Comment: Specimen Information Specimen Source: Stool Specimen Site: Per rectum Specimen Performing Laboratory Stool - Per rectum [facility] [place] [address] * POC panel 7, arterial (03/17/2017 8:28 AM) Component Value Ref Range pH, arterial, POC 7.32 (L) 7.35 - 7.45 Comment: Results given to appropriate healthcare provider. Testing performed at the bedside on the I-STAT analyzer. pCO2, arterial, POC 60 (HH) 35 - 45 mm Hg pO2, arterial, POC 98 (H) 80 - 90 mm Hg Base excess, arterial, 4 (H) -2 - 2 meq/L POC Bicarbonate, arterial, 30.9 (H) 21.0 - 28.0 meq/L POC CO2 calculated, arterial, 33 (H) 24 - 31 meq/L POC O2 saturation, arterial, 97 95 - 100 % POC POC sodium 136 135 - 148 mEq/L POC potassium 3.9 3.5 - 5.0 mEq/L Ionized calcium, 0.86 (L) 1.11 - 1.32 mmol/L arterial, POC POC glucose 190 (H) 65 - 99 mg/dL POC hematocrit 32 (L) 41 - 51 % Specimen Performing Laboratory Blood [facility] DEPARTMENT OF PATHOLOGY AND GENOMIC MEDICINE [address] [place], [place] [id number] * Arterial blood gas (03/17/2017 8:28 AM) Only the most recent of 22 results within the time period is included. Component Value Ref Range pH, arterial SEE COMMENT 7.35 - 7.45 Comment: Footnote--------- Unable to perform testing, specimen is _QNS. Recollect requested for ABG (tests). HERBERT MCCABE/Halima (name/location) notified by [email or web address]_ (tech ID) at 03/17/2017 08:58 ____ (date/time). Credit issued. pCO2, arterial SEE COMMENTComment: Footnote--------- 35 - 45 mmHg pO2, arterial SEE COMMENTComment: Footnote--------- 80 - 90 mmHg Bicarbonate, arterial SEE COMMENTComment: Footnote--------- 21.0 - 28.0 mmol/L Base excess, arterial SEE COMMENTComment: Footnote--------- -2 - 2 mEq/L O2 saturation, arterial SEE COMMENTComment: Footnote--------- 95 - 100 % Specimen Performing Laboratory Blood [facility] DEPARTMENT OF PATHOLOGY AND GENOMIC MEDICINE [address] [place] [address] * Lactic acid level (03/17/2017 6:03 AM) Only the most recent of 11 results within the time period is included. Component Value Ref Range Lactic acid 1.9 0.5 - 2.2 mmol/L Specimen Performing Laboratory Blood [facility] DEPARTMENT OF PATHOLOGY AND GENOMIC MEDICINE [address] [place] [address] * Comprehensive metabolic panel (03/13/2017 5:00 PM) Only the most recent of 10 results within the time period is included. Component Value Ref Range Sodium 141 135 - 148 mEq/L Potassium 3.5 3.5 - 5.0 mEq/L Chloride 97 (L) 98 - 112 mEq/L CO2 26 24 - 31 mEq/L Anion gap 18 (H) 7 - 15 mEq/L Comment: Starting from July , anion gap calculation no longer incorporates potassium. Please note the change. BUN 27 (H) 8 - 23 mg/dL Creatinine 3.8 (H) 0.7 - 1.2 mg/dL Glucose 169 (H) 65 - 99 mg/dL Calcium 8.3 (L) 8.8 - 10.2 mg/dL Protein 6.1 (L) 6.3 - 8.3 g/dL Comment: 4.6-7.0 g/dL 1 week 4.4-7.6 g/dL 7 months-1year 5.1-7.3 g/dL 1-2 years 5.6-7.5 g/dL >3 years 6.0-8.0 g/dL 18-150 6.3-8.3 g/dL Albumin 2.5 (L) 3.5 - 5.0 g/dL A/G ratio 0.7 0.7 - 3.8 Alkaline phosphatase 74 40 - 129 U/L AST 20 10 - 50 U/L ALT <5 (A) 5 - 50 U/L Total bilirubin 0.4 0.0 - 1.2 mg/dL Specimen Performing Laboratory Plasma specimen [facility] DEPARTMENT OF PATHOLOGY AND GENOMIC MEDICINE [address] [place] [address] * Ionized calcium, arterial (03/12/2017 5:46 AM) Only the most recent of 2 results within the time period is included. Component Value Ref Range Ionized calcium, arterial 1.00 (L) 1.11 - 1.32 mmol/L Specimen Performing Laboratory Blood [facility] DEPARTMENT OF PATHOLOGY AND [facility] [address] [place] [address] * IR Central Catheter Placement Replace Removal Fluoroscopy (03/11/2017 5:01 PM ) Specimen Performing Laboratory [facility] [address] [place] [address] Narrative PERFORMING RADIOLOGIST: Sandy Diallo M.D. ASSISTANTS: None. ANESTHESIA TYPE: Moderate sedation was administered by the procedure nurse monitored intraservice base to procedure physician for 68 minutes. Lidocaine 1% and lidocaine 1% with epinephrine were used for local anesthetic. ANTIBIOTICS: None. PRE PROCEDURE DIAGNOSIS: 1. Chronic central venous occlusion 2. Poor peripheral venous access. 3. Need for long-term IV access. POST PROCEDURE DIAGNOSIS: 1. Chronic central venous occlusion status post attempted unsuccessful crossing. 2. Status post successful placement right common femoral approach 6 Tanzanian tunneled central venous catheter. PROCEDURE: 1. Limited preprocedural ultrasound of the neck. 2. Ultrasound-guided access right external jugular vein. 3. Right external jugular venogram x 2. 4. Attempted crossing chronic central venous occlusion. 5. Central venogram x2. 6. Limited preprocedural ultrasound of the right groin. 7. Ultrasound fluoroscopic access right common femoral vein. 8. Placement 6 Tanzanian tunneled central venous catheter via right common femoral approach with tip superimposed on the IVC. TECHNIQUE: After explaining the procedure as well as benefits and risks including but not limited to bleeding, infection, and damage to adjacent structures, all of the patient's questions were answered to apparent satisfaction and written informed consent was then obtained. The patient was placed in a supine position. The patient was taken to the angiography suite and placed supine on the table. The rightneck was prepped and draped in usual sterile fashion. Maximal sterile barrier, hand hygiene, and skin preparation technique was followed. Lidocaine was administered locally. Under ultrasound guidance, documentation of vessel patency, needle access with permanent recording, and reporting are performed followed by placement of a sheath in the rightinternal jugular vein. Preprocedural ultrasound right neck demonstrated the right internal jugular vein was occluded. This corresponded to preprocedural cross-sectional imaging and patient history. Using real-time ultrasound guidance, right external jugular vein was accessed in 2 locations. Right internal jugular venogram was performed in 2 locations. In the first location, I small amount of contrast extravasated into the soft tissues of the neck. The contrast opacified the right external jugular vein and demonstrated that there from this access point, there was not a suitable track centrally. Consequently, a right external jugular venous branch was accessed in a different location. Venogram was performed which demonstrated a suitable number branches heading centrally, one of which appeared to connect to the superior vena cava. 0.018 inch Nitrex wire was advanced via the needle centrally. A dermatotomy was made over the needle. The needle was exchanged for micropuncture sheath. Various combinations of a 0.018 inch Nitrex wire, 0.018 inch Glidewire, 5 Tanzanian micropuncture sheath, 5 Tanzanian sheath, Estrella catheter, 0.035 inch Bentson wire, 0.035 inch J-wire, an 0.035 inch Glidewire were sequentially advanced centrally. Central venography was performed in 2 locations. In the first location, it demonstrated a tiny vessel coursing along the right lateral aspect of the mediastinum inferiorly towards the SVC. This vessel appeared to drain directly into the SVC and was deemed a suitable target for recanalization. The above sheath, catheter, and wire combinations were manipulated centrally towards the small venous branch. The 0.035 inch glide wire coursed in the region of this branch. The Estrella catheter was advanced over the wire. The wire was retracted. Repeat central venography was performed. Unfortunately, it demonstrated that the catheter tip was extraluminal and there is a small amount of contrast within the mediastinum. This contrast would preclude/limited additional central venography. Moreover, given the size of the tiny vessel headed towards the SVC, it was deemed that successful crossing was unlikely. Consequently, it was decided to place a right common femoral venous approach tunneled central venous catheter. The patient's right groin was sterilely prepared and draped in the routine manner. Maximal sterile barrier, hand hygiene, and skin preparation technique was followed. Lidocaine 1% was used for local anesthetic.Under ultrasound guidance, documentation of vessel patency, needle access with permanent recording, and reporting are performed followed by placement of a sheath in the right common femoral vein. The inferior aspect of the right femoral head was marked under fluoroscopy. Using real-time ultrasound guidance, a 21-gauge micropuncture needle was advanced successfully into the right common femoral vein. A 0.018 inch guidewire was advanced centrally through the needle under fluoroscopy. The needle was removed and a micropuncture sheath system was then placed. The inner dilator and guidewire were then removed, and a 0.035 inch J-wire was advanced through the micropuncture sheath and successfully into the inferior vena cava. The infraclavicular fossa was anesthetized with lidocaine 1% mixed with epinephrine. A skin incision was made, and a tunneling device was used to pass the tunneled central venous catheter from the skin entry site to the venotomy site. Attention was then returned to the venotomy site. A 6 Tanzanian tunneled central venous catheter was then deployed through a peel-away sheath. The catheter tip was placed at the right atrium/superior vena cava junction under fluoroscopic guidance. All ports were tested and demonstrate adequate flow. The catheter was secured to the skin using 2-0 silk suture. The small venotomy incision was closed with 2 -0 Vicryl suture and Dermabond. The patient tolerated the procedure well. RADIATION DOSE Ka,r=302 mGy COMPLICATIONS: No immediate complication. SPECIMENS REMOVED: None. ESTIMATED BLOOD LOSS: Less than 1 cc. BLOOD PRODUCTS ADMINISTERED: None. CONTRAST/IMPLANTS: As described in the above report. IMPRESSION: 1. Patent right external jugular vein draining into multiple dilated paralumbar veins and via the right subclavian vein into multiple intercostal veins. Possible tiny branch along the right lateral aspect of the upper mediastinum coursing towards the hero graft/SVC. 2. Attempted crossing of the chronic central venous occlusion, which was unsuccessful. 3. Successful placement right common femoral venous approach 6 Tanzanian tunneled central venous catheter with tip projecting over IVC. PLAN: - The right common femoral venous tunneled central line should be considered jeffry access. Great care should be taken before removing this access given the patient's chronic total central venous occlusion superiorly. [facility]-[id number] Procedure Note [facility], Radiology Results Incoming - 03/11/2017 6:20 PM [employer]MER [employer] PERFORMING RADIOLOGIST: Sandy Diallo M.D. ASSISTANTS: None. ANESTHESIA TYPE: Moderate sedation was administered by the procedure nurse monitored intraservice base to procedure physician for 68 minutes. Lidocaine 1% and lidocaine 1% with epinephrine were used for local anesthetic. ANTIBIOTICS: None. PRE PROCEDURE DIAGNOSIS: 1. Chronic central venous occlusion 2. Poor peripheral venous access. 3. Need for long-term IV access. POST PROCEDURE DIAGNOSIS: 1. Chronic central venous occlusion status post attempted unsuccessful crossing. 2. Status post successful placement right common femoral approach 6 Tanzanian tunneled central venous catheter. PROCEDURE: 1. Limited preprocedural ultrasound of the neck. 2. Ultrasound-guided access right external jugular vein. 3. Right external jugular venogram x 2. 4. Attempted crossing chronic central venous occlusion. 5. Central venogram x2. 6. Limited preprocedural ultrasound of the right groin. 7. Ultrasound fluoroscopic access right common femoral vein. 8. Placement 6 Tanzanian tunneled central venous catheter via right common femoral approach with tip superimposed on the IVC. TECHNIQUE: After explaining the procedure as well as benefits and risks including but not limited to bleeding, infection, and damage to adjacent structures, all of the patient's questions were answered to apparent satisfaction and written informed consent was then obtained. The patient was placed in a supine position. The patient was taken to the angiography suite and placed supine on the table. The right neck was prepped and draped in usual sterile fashion. Maximal sterile barrier, hand hygiene, and skin preparation technique was followed. Lidocaine was administered locally. Under ultrasound guidance, documentation of vessel patency, needle access with permanent recording, and reporting are performed followed by placement of a sheath in the right internal jugular vein. Preprocedural ultrasound right neck demonstrated the right internal jugular vein was occluded. This corresponded to preprocedural cross-sectional imaging and patient history. Using real-time ultrasound guidance, right external jugular vein was accessed in 2 locations. Right internal jugular venogram was performed in 2 locations. In the first location, I small amount of contrast extravasated into the soft tissues of the neck. The contrast opacified the right external jugular vein and demonstrated that there from this access point, there was not a suitable track centrally. Consequently, a right external jugular venous branch was accessed in a different location. Venogram was performed which demonstrated a suitable number branches heading centrally, one of which appeared to connect to the superior vena cava. 0.018 inch Nitrex wire was advanced via the needle centrally. A dermatotomy was made over the needle. The needle was exchanged for micropuncture sheath. Various combinations of a 0.018 inch Nitrex wire, 0.018 inch Glidewire, 5 Tanzanian micropuncture sheath, 5 Tanzanian sheath, Estrella catheter, 0.035 inch Bentson wire, 0.035 inch J-wire, an 0.035 inch Glidewire were sequentially advanced centrally. Central venography was performed in 2 locations. In the first location, it demonstrated a tiny vessel coursing along the right lateral aspect of the mediastinum inferiorly towards the SVC. This vessel appeared to drain directly into the SVC and was deemed a suitable target for recanalization. The above sheath, catheter, and wire combinations were manipulated centrally towards the small venous branch. The 0.035 inch glide wire coursed in the region of this branch. The Estrella catheter was advanced over the wire. The wire was retracted. Repeat central venography was performed. Unfortunately, it demonstrated that the catheter tip was extraluminal and there is a small amount of contrast within the mediastinum. This contrast would preclude/limited additional central venography. Moreover, given the size of the tiny vessel headed towards the SVC, it was deemed that successful crossing was unlikely. Consequently, it was decided to place a right common femoral venous approach tunneled central venous catheter. The patient's right groin was sterilely prepared and draped in the routine manner. Maximal sterile barrier, hand hygiene, and skin preparation technique was followed. Lidocaine 1% was used for local anesthetic. Under ultrasound guidance, documentation of vessel patency, needle access with permanent recording, and reporting are performed followed by placement of a sheath in the right common femoral vein. The inferior aspect of the right femoral head was marked under fluoroscopy. Using real-time ultrasound guidance, a 21-gauge micropuncture needle was advanced successfully into the right common femoral vein. A 0.018 inch guidewire was advanced centrally through the needle under fluoroscopy. The needle was removed and a micropuncture sheath system was then placed. The inner dilator and guidewire were then removed, and a 0.035 inch J-wire was advanced through the micropuncture sheath and successfully into the inferior vena cava. The infraclavicular fossa was anesthetized with lidocaine 1% mixed with epinephrine. A skin incision was made, and a tunneling device was used to pass the tunneled central venous catheter from the skin entry site to the venotomy site. Attention was then returned to the venotomy site. A 6 Tanzanian tunneled central venous catheter was then deployed through a peel-away sheath. The catheter tip was placed at the right atrium/superior vena cava junction under fluoroscopic guidance. All ports were tested and demonstrate adequate flow. The catheter was secured to the skin using 2-0 silk suture. The small venotomy incision was closed with 2 -0 Vicryl suture and Dermabond. The patient tolerated the procedure well. RADIATION DOSE Ka,r=302 mGy COMPLICATIONS: No immediate complication. SPECIMENS REMOVED: None. ESTIMATED BLOOD LOSS: Less than 1 cc. BLOOD PRODUCTS ADMINISTERED: None. CONTRAST/IMPLANTS: As described in the above report. IMPRESSION: 1. Patent right external jugular vein draining into multiple dilated paralumbar veins and via the right subclavian vein into multiple intercostal veins. Possible tiny branch along the right lateral aspect of the upper mediastinum coursing towards the hero graft/SVC. 2. Attempted crossing of the chronic central venous occlusion, which was unsuccessful. 3. Successful placement right common femoral venous approach 6 Tanzanian tunneled central venous catheter with tip projecting over IVC. PLAN: - The right common femoral venous tunneled central line should be considered jeffry access. Great care should be taken before removing this access given the patient's chronic total central venous occlusion superiorly. [facility]-[id number] * LDH (03/11/2017 4:00 AM) Only the most recent of 5 results within the time period is included. Component Value Ref Range LDH 125 87 - 225 U/L Specimen Performing Laboratory Blood [facility] DEPARTMENT OF PATHOLOGY AND GENOMIC MEDICINE [address] [place] [address] * CT Abdomen Pelvis Wo Contrast (03/10/2017 10:18 AM) Only the most recent of 4 results within the time period is included. Specimen Performing Laboratory [facility] [address] [place] [address] Narrative EXAMINATION:CT ABDOMEN PELVIS WO CONTRAST CLINICAL HISTORY:partial sboOral contrast to be given via NGT TECHNIQUE:Multiple axial images of the abdomen and pelvis were obtained without intravenous administration of iodinated contrast. Sagittal and coronal computerized reformatted images were also obtained. The lack of intravenous contrast reduces the sensitivity of detecting solid organ disease. CT imaging was performed with iterative reconstruction techniques and/or automated exposure control to reduce radiation dose. COMPARISON:To a previous CT examination from 03/07/2017 and plain film from 03/09/2017 IMPRESSION: Abdomen: 1. Atelectasis and consolidation in the right lower lobe is present, unchanged. Consolidation and pleural effusion on the left side has resolved. 2.A small right pleural effusion is present. 3.A small amount of upper abdominal ascites is present. 4.The liver and the spleen demonstrate no focal abnormalities. The pancreas is normal in appearance but not well visualized. An inferior vena cava filter is present. Gastrostomy tube is present. 5.An adrenal mass is not identified. 6.Both kidneys are atrophic. Pelvis: 1. The small bowel is dilated as is the colon and findings are consistent with an ileus. Extensive vascular calcifications are noted diffusely. 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 There is no evidence of pelvic mass. 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 Sagittal and coronal computerized reformatted images were also obtained. The lack of intravenous contrast reduces the sensitivity of detecting solid organ disease. CT imaging was performed with iterative reconstruction techniques and/or automated exposure control to reduce radiation dose. COMPARISON: To a previous CT examination from 03/07/2017 and plain film from IMPRESSION: Abdomen: 1. Atelectasis and consolidation in the right lower lobe is present, unchanged. Consolidation and pleural effusion on the left side has resolved. 2. A small right pleural effusion is present. 3. A small amount of upper abdominal ascites is present. 4. The liver and the spleen demonstrate no focal abnormalities. The pancreas is normal in appearance but not well visualized. An inferior vena cava filter is present. Gastrostomy tube is present. 5. An adrenal mass is not identified. 6. Both kidneys are atrophic. Pelvis: 1. The small bowel is dilated as is the colon and findings are consistent with an ileus. Extensive vascular calcifications are noted diffusely. 2. 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 There is no evidence of pelvic mass. [facility]-[id number] * B natriuretic peptide (03/10/2017 3:40 AM) Only the most recent of 3 results within the time period is included. Component Value Ref Range BNP 657 (H) 0 - 100 pg/mL Specimen Performing Laboratory Blood [facility] DEPARTMENT OF PATHOLOGY AND [address] [address] * Beta hydroxybutyrate (03/09/2017 7:59 AM) Component Value Ref Range Beta hydroxybutyrate 0.26 0.02 - 0.27 mmol/L Specimen Performing Laboratory Serum [facility] DEPARTMENT OF PATHOLOGY AND [address] [address] * Transfuse RBC (03/08/2017 12:35 PM) Only the most recent of 4 results within the time period is included. * C-reactive protein (03/08/2017 8:15 AM) Component Value Ref Range CRP 5.24 (H) 0.00 - 0.50 mg/dL Specimen Performing Laboratory Plasma specimen [facility] DEPARTMENT OF PATHOLOGY AND [address] [address] * Cortisol level, random (03/08/2017 8:15 AM) Component Value Ref Range Cortisol, random 19 ug/dL Comment: Reference Ranges are not established for non-timed Cortisol levels. Reference Range for Timed Cortisol: 6 - 10 AM 6 - 18 ug/dl 4 - 8 PM 3 - 11 ug/dl Specimen Performing Laboratory Plasma specimen [facility] DEPARTMENT PATHOLOGY AND [address] [address] * Troponin (03/08/2017 1:55 AM) Only the most recent of 10 results within the time period is included. Component Value Ref Range Troponin <0.30 0.00 - 0.30 ng/mL Comment: 0.30 - 1.49 ng/ml May indicate increased risk of acute coronary syndrome. >=1.5 ng/ml Consistent with acute myocardial infarction. The diagnostic value of a single normal or non-diagnostic result is questionable. Serial samples at 2-6 hour intervals are required to rule out acute myocardial injury. Specimen Performing Laboratory Plasma specimen [facility] DEPARTMENT OF PATHOLOGY AND GENOMIC MEDICINE [address] [place] [address] * Bronchoscopy (03/08/2017 1:40 AM) Kaitlin Mcdonald MD 03/08/20171:17 AM Bronchoscopy Date/Time: 03/08/2017 1:13 AM Performed by: SOURAV MCDONALD Authorized by: SHERYL PALM Consent: Consent obtained: over phone from daughter. Consent given by: daughter. Alternatives discussed:Observation [place] protocol: Procedure explained and questions answered to patient or proxy's satisfaction: yes Imaging studies available: yes Immediately prior to procedure, a time out was called: yes Patient identity confirmed:Hospital-assigned identification number Pre-procedure details: Indication:Acute on chronic respiratory failure, aspiration, secretion clearance Scope type:Flexible bronchoscope Airway: Intubated/Not intubated: trach to vent. Monitoring devices:NIPB, ECG and pulse oximetry Sedation: Sedation Type:Narcotic Narcotic(s) used::Fentanyl Findings: Bronchoscopy: Findings: Normal airway. Moderate amount of thin clear foamy secretions noted in RML, RLL and LLL. These were suctioned. Secretion consistency:Thin Secretion amount:Moderate Washings: Washings:Right and left Sample sent for:Gram stain, fungus and routine culture Post-procedure details: Patient tolerance of procedure: Patient tolerated the procedure well with no immediate complications Attending physician:Dr. Betancourt Resident performing procedure:Dr. Mcdonald (fellow) Comments: Bronchoscope was introduced through the trach. The trachea was normal and main marybel was sharp. There were moderate amount of thin clear foamy secretions in bilateral lower lobes and RML which were suctioned. Washings done in RML, RLL and LLL. These were sent for culture. Airway was clear of secretions by the end of procedure. * Respiratory culture (03/08/2017 1:00 AM) Only the most recent of 2 results within the time period is included. Component Value Ref Range Respiratory culture Normal oral colleen isolated. isolate Comment: Specimen Information Specimen Source: Bronchial Washing Specimen Site: Induced Specimen Performing Laboratory Bronchial washing - [facility] DEPARTMENT OF PATHOLOGY AND GENOMIC MEDICINE Induced [address] [place] [address] * Fungus smear (03/08/2017 1:00 AM) Only the most recent of 2 results within the time period is included. Component Value Ref Range Fungus smear Few budding yeast seen Comment: Specimen Information Specimen Source: Bronchial Washing Specimen Site: Induced Specimen Performing Laboratory Bronchial washing - [facility] DEPARTMENT OF PATHOLOGY AND GENOMIC MEDICINE Induced [address] [place] [address] * Fungus culture (03/08/2017 1:00 AM) Only the most recent of 3 results within the time period is included. Component Value Ref Range Fungus culture isolate Nikki tropicalis Moderate The performance characteristics of this assay on this isolate were validated by the Microbiology Laboratory at [facility]. This source has not been approved by the U.S. Food and Drug Administration. The results are not intended to be used as the sole means for clinical diagnosis or patient management. The Microbiology Laboratory is authorized under the clinical Laboratory Improvement Amendments of 1988 (CLIA-88) to perform high complexity testing. (A) Comment: Specimen Information Specimen Source: Bronchial Washing Specimen Site: Induced Specimen Performing Laboratory Bronchial washing - [facility] DEPARTMENT OF PATHOLOGY AND GENOMIC MEDICINE Induced [address] [place] [address] * Occult blood, stool (03/07/2017 6:01 PM) Component Value Ref Range Occult blood, stool Positive for Occult blood (A) Comment: Specimen Information Specimen Source: Stool Specimen Site: Nonpreserved Specimen Performing Laboratory Stool - Nonpreserved [facility] DEPARTMENT [place] [address] * Respiratory pathogen panel (03/07/2017 5:59 PM) Only the most recent of 2 results within the time period is included. Component Value Ref Range Respiratory pathogen Negative for all pathogens tested: panel Negative for Adenovirus Negative for Coronavirus HKU1 Negative for Coronavirus NL63 Negative for Coronavirus 229E Negative for Coronavirus OC43 Negative for Human Metapneumovirus Negative for Rhinovirus/Enterovirus Negative for Influenza A Negative for Influenza A/H1 Negative for Influenza A/H3 Negative for Influenza A/H1-2009 Negative for Influenza B Negative for Parainfluenza Virus 1 Negative for Parainfluenza Virus 2 Negative for Parainfluenza Virus 3 Negative for Parainfluenza Virus 4 Negative for Respiratory Syncytial Virus Negative for Bordetella pertussis Negative for Chlamydophila pneumoniae Negative for Mycoplasma pneumoniae This real-time PCR assay detects the presence of nucleic acids (RNA or DNA) for the respiratory pathogens listed. A result of "Not-detected" does not exclude the possibility of the presence of one or more pathogens at concentrations less than the detectable limits of the assay. Comment: Specimen Information Specimen Source: Nares Specimen Site: Right Specimen Performing Laboratory Nares - Right [facility] [place] [address] * Potassium level (02/28/2017 3:07 AM) Only the most recent of 3 results within the time period is included. Component Value Ref Range Potassium 3.4 (L) 3.5 - 5.0 mEq/L Specimen Performing Laboratory Plasma specimen [facility] DEPARTMENT OF PATHOLOGY AND [address] [address] * Reticulocyte count (02/26/2017 2:30 AM) Component Value Ref Range Retic %, auto 1.2 0.5 - 2.1 % Retic absolute, auto 0.0334 0.0220 - 0.1260 m/uL Specimen Performing Laboratory Blood [facility] [address] * Vitamin B12 level (02/26/2017 2:30 AM) Only the most recent of 2 results within the time period is included. Component Value Ref Range Vitamin B12 1,325 (H) 211 - 946 pg/mL Comment: Significant overlap exists between normal and deficiency states. However, most patients with deficiencies will have Serum B12 <200 pg/mL. Specimen Performing Laboratory Serum [facility] PATHOLOGY [place] [id number] * Hepatic function panel (02/25/2017 2:45 AM) Only the most recent of 3 results within the time period is included. Component Value Ref Range Albumin 1.9 (L) 3.5 - 5.0 g/dL Total bilirubin 0.5 0.0 - 1.2 mg/dL Bilirubin direct <0.2 0.0 - 0.3 mg/dL Alkaline phosphatase 90 40 - 129 U/L Protein 5.5 (L) 6.3 - 8.3 g/dL Comment: 4.6-7.0 g/dL 1 week 4.4-7.6 g/dL 7 months-1year 5.1-7.3 g/dL 1-2 years 5.6-7.5 g/dL >3 years 6.0-8.0 g/dL 18-150 6.3-8.3 g/dL ALT 7 5 - 50 U/L AST 32 10 - 50 U/L Specimen Performing Laboratory Plasma specimen [facility] DEPARTMENT OF PATHOLOGY AND GENOMIC MEDICINE [address] [place] [address] * CT Chest W Contrast Abdomen W Contrast Pelvis W Contrast (02/24/2017 2:01 AM) Specimen Performing Laboratory [facility] [address] [place] [address] Narrative EXAMINATION:CT CHEST W CONTRAST ABDOMEN W CONTRAST PELVIS W CONTRAST CLINICAL HISTORY:Concern for free air on KUB with some abdominal tenderness s p unresponsiveness episode after HD TECHNIQUE: Multiple axial images of the chest, abdomen, and pelvis were obtained following intravenous administration of iodinated contrast. Sagittal and coronal computerized reformatted images were obtained. CT imaging was performed with iterative reconstruction technique and/or automated exposure control to reduce radiation dose. COMPARISON:01/26/2017 FINDINGS: Chest: Small to moderate right and small left pleural effusion. Atelectasis of the lower lobes is seen with some consolidation. Opacity of the right middle lobe is unchanged since 01/26/2017, and may reflect scarring or rounded atelectasis. Continued surveillance is recommended. No pneumothorax. Small pneumomediastinum is seen anteriorly. Tracheostomy tube is in place. The airway is patent. Heart size is normal. Coronary artery calcifications are seen. 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 Mediastinal adenopathy is seen, likely reactive. Atherosclerotic vascular calcifications are seen. Moderate vascular calcification is seen at the origin of the celiac artery. Distal vasculature is patent. The superior mesenteric artery arises from the celiac trunk. Inferior mesenteric artery is patent at its origin and demonstrates extensive atherosclerotic calcification distally. A right common femoral venous catheter terminates in the right common iliac vein. Infrarenal inferior vena cava filter is in place. Abdomen/pelvis: Liver is unremarkable. Patient is status post cholecystectomy, with expected prominence of biliary ductal system. Spleen, adrenal glands are normal. 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 Innumerable cysts are seen of the kidneys, of varying density. Evaluation is limited due to the lack of contrast. The appearance of the kidneys is stable since 01/26/2017. No hydronephrosis or hydroureter. Bladder is unremarkable. Prostate gland is enlarged measuring 6.1 cm. Correlation with lab values and physical exam is recommended. Small ascites. Free intraperitoneal air is identified. Appendix is not seen. No gastrointestinal tract obstruction. Prominent loops of small bowel are seen with air-fluid levels, suggestive of ileus. Percutaneous gastrostomy tube is in place. Marked anasarca. Left subclavian and axillary region stents are identified. 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 In the subcutaneous tissues of the right thigh, anteriorly, there is a 7.6 x 4.7 cm and a 2 x 3.7 cm fluid collection, stable since 01/26/2017, compatible with old evolving hematomas. 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 No acute osseous abnormalities. Mild degenerative change of the thoracolumbar spine. IMPRESSION: Free intraperitoneal air is identified. In the absence of recent surgery, this would be concerning for a bowel perforation. Bilateral pleural effusions, with atelectasis and consolidation of the lower lobes. Opacity of the right middle lobe is unchanged, and may reflect scarring or rounded atelectasis. Continued surveillance recommended. Tiny pneumomediastinum is seen anteriorly. Innumerable cysts are seen of the kidneys, of varying density. Evaluation is limited due to the lack of contrast, continued surveillance is recommended. Evolving old hematomas of the subcutaneous tissues of the right thigh as detailed above. These have diminished in density since 01/26/2017. Findings were discussed with and read back by Dr. Chapa at 02/24/2017 2:41 AM who verbalized understanding. [facility]-[id number] Procedure Note [facility], Radiology Results Incoming - 02/24/2017 2:47 AM DRAPERY HEMMER AUTOMATIC EXAMINATION: CT CHEST W CONTRAST ABDOMEN W CONTRAST PELVIS W CONTRAST CLINICAL HISTORY: Concern for free air on KUB with some abdominal tenderness s p unresponsiveness episode after HD TECHNIQUE: Multiple axial images of the chest, abdomen, and pelvis were obtained following intravenous administration of iodinated contrast. Sagittal and coronal computerized reformatted images were obtained. CT imaging was performed with iterative reconstruction technique and/or automated exposure control to reduce radiation dose. COMPARISON: 01/26/2017 FINDINGS: Chest: Small to moderate right and small left pleural effusion. Atelectasis of the lower lobes is seen with some consolidation. Opacity of the right middle lobe is unchanged since 01/26/2017, and may reflect scarring or rounded atelectasis. Continued surveillance is recommended. No pneumothorax. Small pneumomediastinum is seen anteriorly. Tracheostomy tube is in place. The airway is patent. Heart size is normal. Coronary artery calcifications are seen. 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 Mediastinal adenopathy is seen, likely reactive. Atherosclerotic vascular calcifications are seen. Moderate vascular calcification is seen at the origin of the celiac artery. Distal vasculature is patent. The superior mesenteric artery arises from the celiac trunk. Inferior mesenteric artery is patent at its origin and demonstrates extensive atherosclerotic calcification distally. A right common femoral venous catheter terminates in the right common iliac vein. Infrarenal inferior vena cava filter is in place. Abdomen/pelvis: Liver is unremarkable. Patient is status post cholecystectomy, with expected prominence of biliary ductal system. Spleen, adrenal glands are normal. 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 Innumerable cysts are seen of the kidneys, of varying density. Evaluation is limited due to the lack of contrast. The appearance of the kidneys is stable since 01/26/2017. No hydronephrosis or hydroureter. Bladder is unremarkable. Prostate gland is enlarged measuring 6.1 cm. Correlation with lab values and physical exam is recommended. Small ascites. Free intraperitoneal air is identified. Appendix is not seen. No gastrointestinal tract obstruction. Prominent loops of small bowel are seen with air-fluid levels, suggestive of ileus. Percutaneous gastrostomy tube is in place. Marked anasarca. Left subclavian and axillary region stents are identified. 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 In the subcutaneous tissues of the right thigh, anteriorly, there is a 7.6 x 4.7 cm and a 2 x 3.7 cm fluid collection, stable since 01/26/2017, compatible with old evolving hematomas. 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 No acute osseous abnormalities. Mild degenerative change of the thoracolumbar spine. IMPRESSION: Free intraperitoneal air is identified. In the absence of recent surgery, this would be concerning for a bowel perforation. Bilateral pleural effusions, with atelectasis and consolidation of the lower lobes. Opacity of the right middle lobe is unchanged, and may reflect scarring or rounded atelectasis. Continued surveillance recommended. Tiny pneumomediastinum is seen anteriorly. Innumerable cysts are seen of the kidneys, of varying density. Evaluation is limited due to the lack of contrast, continued surveillance is recommended. Evolving old hematomas of the subcutaneous tissues of the right thigh as detailed above. These have diminished in density since 01/26/2017. Findings were discussed with and read back by Dr. Chapa at 02/24/2017 2:41 AM who verbalized understanding. [facility]-[id number] * Blood culture, fungus (02/24/2017 1:43 AM) Component Value Ref Range Blood culture isolate, No fungus isolated in 8 days. fungus Comment: Specimen Information Specimen Source: Blood Specimen Site: Antecubital, right Specimen Performing Laboratory Blood - Antecubital, [facility] DEPARTMENT OF PATHOLOGY AND GENOMIC MEDICINE right [address] [place] [address] * Fibrinogen (02/23/2017 8:46 PM) Only the most recent of 7 results within the time period is included. Component Value Ref Range Fibrinogen 359 200 - 450 mg/dL Specimen Performing Laboratory Blood [facility] DEPARTMENT OF PATHOLOGY AND GENOMIC MEDICINE [address] [place] [address] * CT Abdomen Pelvis W Contrast (01/26/2017 10:58 AM) Specimen Performing Laboratory [facility] [address] [place] [address] Narrative EXAMINATION:CT ABDOMEN PELVIS W CONTRAST CLINICAL HISTORY:retro-peritoneal hematomaright groin hematoma TECHNIQUE: Multiple axial images of the abdomen and pelvis were obtained following intravenous administration of iodinated contrast. Sagittal and coronal computerized reformatted images were also obtained.CT scans are performed using radiation dose reduction techniques. Technical factors are evaluated and adjusted to ensure appropriate moderation of exposure. Automated dose management technology is applied to adjust radiation exposure while achieving a diagnostic quality image. COMPARISON:01/21/2017 IMPRESSION: Abdomen: 1. There is a right hydropneumothorax which is similar to the prior exam. 2.There is generalized body wall edema/anasarca. No retroperitoneal hematoma is identified. 3. Liver, spleen, pancreas, adrenals are within normal limits. Gallbladder is surgically absent. End-stage kidneys. 4.The abdominal aorta is normal in caliber. 5.Bowel is unobstructed. Pelvis: 1. There is a 9.2 x 4.7 cm heterogeneous mass in the anterior proximal right thigh extending to the groin, presumed hematoma. 2.Urinary bladder is unremarkable. Prostate is normal in size. 3.There are degenerative changes of the hips. No suspicious osseous lesion. [id number] Procedure Note Interface, Radiology Results Incoming - 01/26/2017 2:00 PM CDT EXAMINATION: CT ABDOMEN PELVIS W CONTRAST CLINICAL HISTORY: retro-peritoneal hematoma right groin hematoma TECHNIQUE: Multiple axial images of the abdomen and pelvis were obtained following intravenous administration of iodinated contrast. Sagittal and coronal computerized reformatted images were also obtained.CT scans are performed using radiation dose reduction techniques. Technical factors are evaluated and adjusted to ensure appropriate moderation of exposure. Automated dose management technology is applied to adjust radiation exposure while achieving a diagnostic quality image. COMPARISON: 01/21/2017 IMPRESSION: Abdomen: 1. There is a right hydropneumothorax which is similar to the prior exam. 2. There is generalized body wall edema/anasarca. No retroperitoneal hematoma is identified. 3. Liver, spleen, pancreas, adrenals are within normal limits. Gallbladder is surgically absent. End-stage kidneys. 4. The abdominal aorta is normal in caliber. 5. Bowel is unobstructed. Pelvis: 1. There is a 9.2 x 4.7 cm heterogeneous mass in the anterior proximal right thigh extending to the groin, presumed hematoma. 2. Urinary bladder is unremarkable. Prostate is normal in size. 3. There are degenerative changes of the hips. No suspicious osseous lesion. [id number] * Hemoglobin & hematocrit (01/25/2017 1:46 PM) Only the most recent of 5 results within the time period is included. Component Value Ref Range HGB 7.4 (L) 14.0 - 18.0 g/dL HCT 23.4 (L) 41.0 - 51.0 % Specimen Performing Laboratory Blood [facility] DEPARTMENT OF PATHOLOGY AND GENOMIC MEDICINE [address] [place] [id number] * US Extremity Right (01/25/2017 12:25 PM) Specimen Performing Laboratory [facility] [address] [place] [id number] Narrative EXAMINATION:US EXTREMITY RIGHT CLINICAL HISTORY: Evolution of Right groin hematoma (Right lower extremity) COMPARISON:None. Impression: Several large complex fluid collection noted in the right groin superficial to the femoral vessels. The larger of these measures 9 x 9 cm. The smaller measures 7 x 5 cm. No internal flow is identified. Findings consistent with large hematomas, without evidence of pseudoaneurysm. [id number] Procedure Note Interface, Radiology Results Incoming - 01/25/2017 2:12 PM CDT EXAMINATION: US EXTREMITY RIGHT CLINICAL HISTORY: Evolution of Right groin hematoma (Right lower extremity) COMPARISON: None. Impression: Several large complex fluid collection noted in the right groin superficial to the femoral vessels. The larger of these measures 9 x 9 cm. The smaller measures 7 x 5 cm. No internal flow is identified. Findings consistent with large hematomas, without evidence of pseudoaneurysm. [id number] * Smear review (01/25/2017 3:15 AM) Only the most recent of 5 results within the time period is included. Component Value Ref Range Platelet slide review Zully adequate Anisocytosis Moderate Polychromasia Moderate Specimen Performing Laboratory [facility] DEPARTMENT OF PATHOLOGY AND GENOMIC MEDICINE [address] [place] [id number] * Bronchoscopy (01/22/2017 1:12 PM) Narrative Daniel Harvey MD 01/22/20171:02 PM Bronchoscopy Date/Time: 01/22/2017 12:54 PM Performed by: DANIEL HARVEY Authorized by: DANIEL HARVEY Consent: Consent obtained:Emergent situation [place] protocol: Procedure explained and questions answered to patient or proxy's satisfaction: yes Relevant documents present and verified: yes Test results available and properly labeled: yes Imaging studies available: yes Required blood products, implants, devices, and special equipment available: yes Site/side marked: yes Immediately prior to procedure, a time out was called: yes Patient identity confirmed:Verbally with patient and arm band Pre-procedure details: Indication:Respiratory failure Scope type:Flexible bronchoscope Airway:Intubated Monitoring devices:ECG and pulse oximetry Sedation: Sedation Type:Narcotic Narcotic(s) used::Dilaudid Findings: Location of endotracheal tube:2 c Secretion consistency:Thick Secretion amount:Large Post-procedure details: Patient tolerance of procedure: Patient tolerated the procedure well with no immediate complications Attending physician:Viv Resident performing procedure:Candice Comments: Mucous plugging of RLL. Saline was instilled and secretions were loosened and secretions were cleared. Chronic bronchitis changes noted. L w/ minimal secretions. * Bronchoscopy (01/21/2017 6:48 PM) Kaitlin Harvey MD 01/21/20174:30 PM Bronchoscopy Date/Time: 01/21/2017 4:25 PM Performed by: DANIEL HARVEY Authorized by: DANIEL HARVEY Consent: Consent obtained:Emergent situation Consent given by:Healthcare agent Alternatives discussed:No treatment, delayed treatment, alternative treatment, observation and referral [place] protocol: Procedure explained and questions answered to patient or proxy's satisfaction: yes Relevant documents present and verified: yes Test results available and properly labeled: yes Imaging studies available: yes Required blood products, implants, devices, and special equipment available: yes Site/side marked: yes Immediately prior to procedure, a time out was called: yes Patient identity confirmed:Arm band Pre-procedure details: Indication:Respiratory failure, mucous plugging Scope type:Flexible bronchoscope Airway:Intubated Monitoring devices:ECG, NIPB and pulse oximetry Findings: Location of endotracheal tube:At marybel, retracted Secretion consistency:Thick Secretion amount:Large Washings: Washings:Right Sample sent for:AFB, aspergillus, viral culture, CMV, routine culture, fungus, gram stain, legionella, nocardia, chlamydia, mycoplasma and cytology Post-procedure details: Patient tolerance of procedure: Patient tolerated the procedure well with no immediate complications Attending physician:Viv Resident performing procedure:Candice Comments: Mucous plugging of R mainstem bronchus with thick mucous plug. Saline was instilled and secretions were loosened. Bronchoscopy proceeded with inspection of RUL w/ clearance of thick secretions. RML also with copious secretions suctioned and cleared. RLL w/ thick mucous secretions, and also with cartilaginous outpouching but no obvious endobronchial lesion noted. Chronic thickening/inflammatory changes noted in RLL. Secretions suctioned and cleared. KRISTY, Lingula and LLL inspected, minimal secretions noted. * AFB culture (01/21/2017 5:52 PM) Only the most recent of 2 results within the time period is included. Component Value Ref Range AFB culture isolate Haemophilus haemolyticus Many (A) Comment: Specimen Information Specimen Source: Bronchial Washing Specimen Site: RLL (right lower lobe) Specimen Performing Laboratory Bronchial washing - RLL [facility] DEPARTMENT OF PATHOLOGY AND GENOMIC MEDICINE (right lower lobe) [address] [place] [address] Organism Antibiotic Method Susceptibility Haemophilus haemolyticus Ampicillin KB mm: Susceptible Haemophilus haemolyticus Azithromycin KB mm: Susceptible Haemophilus haemolyticus Ampicillin/Sulbactam KB mm: Susceptible Haemophilus haemolyticus Ceftriaxone KB mm: Susceptible Haemophilus haemolyticus Levofloxacin KB mm: Susceptible Haemophilus haemolyticus Tetracycline KB mm: Resistant Haemophilus haemolyticus Trimethoprim/Sulfamethoxa KB mm: Susceptible zole Haemophilus haemolyticus Doxycycline KB mm: Susceptible Haemophilus haemolyticus Minocycline KB mm: Susceptible * Cytomegalovirus by PCR (01/21/2017 4:53 PM) Component Value Ref Range Cytomegalovirus by PCR Not-Detected Not-Detected IU/mL Cytomegalovirus by PCR See link below for PDF Lab ReportComment: Specimen Performing Laboratory Bronchial washing [facility] DEPARTMENT OF PATHOLOGY AND GENOMIC MEDICINE [address] [place] [address] Narrative The specimen type Bronchial Washing treated with Dithiothreitol (DTT) has not been validated for this assay. Therefore, the sensitivity and specificity of this assay for this specimen type is unknown. A negative result does not completely rule out the presence of CMV. Correlation with other clinical information is recommended * Varicella zoster by PCR (01/21/2017 4:53 PM) Component Value Ref Range VZV result Not-Detected Not-Detected copies/mL Varicella zoster, PCR See link below for PDF Lab ReportComment: Specimen Performing Laboratory Bronchial washing [facility] DEPARTMENT OF PATHOLOGY [facility] MEDICINE [address] [place] [address] * Herpes simplex virus by PCR (01/21/2017 4:52 PM) Component Value Ref Range Herpes virus, PCR HSV-1 Positive (A) Not-Detected Herpes virus, PCR See link below for PDF Lab ReportComment: Specimen Performing Laboratory Bronchial washing [facility] DEPARTMENT OF PATHOLOGY AND GENOMIC MEDICINE [address] [place] [address] * Nocardia culture (01/21/2017 4:52 PM) Component Value Ref Range Nocardia culture isolate No Nocardia isolated after 7 days. Comment: Specimen Information Specimen Source: Bronchial Washing Specimen Site: RLL (right lower lobe) Specimen Performing Laboratory Bronchial washing - RLL [facility] DEPARTMENT OF PATHOLOGY AND GENOMIC MEDICINE (right lower lobe) [address] [place] [address] * Legionella culture (01/21/2017 4:52 PM) Component Value Ref Range Legionella culture No Legionella isolated. isolate Comment: Specimen Information Specimen Source: Bronchial Washing Specimen Site: RLL (right lower lobe) Specimen Performing Laboratory Bronchial washing - RLL [facility] DEPARTMENT OF PATHOLOGY AND GENOMIC [facility] (right lower lobe) [address] [place] [address] * AFB stain (01/21/2017 4:52 PM) Component Value Ref Range AFB stain No acid fast bacilli (AFB) seen. Comment: Specimen Information Specimen Source: Bronchial Washing Specimen Site: RLL (right lower lobe) Specimen Performing Laboratory Bronchial washing - RLL [facility] DEPARTMENT OF PATHOLOGY AND GENOMIC MEDICINE (right lower lobe) [address] [place] [address] * Cytology (non-gynecological) request (01/21/2017 4:24 PM) Component Value Ref Range Cytology See link below for PDF Lab Report (non-gynecological) report Specimen Performing Laboratory [facility] DEPARTMENT OF PATHOLOGY AND GENOMIC MEDICINE [address] [place] [address] * CT Chest Wo Contrast Abdomen Wo Contrast Pelvis Wo Contrast (01/21/2017 1:57 PM) Specimen [facility] [address] [place] [address] Narrative EXAMINATION:CT CHEST WO CONTRAST ABDOMEN WO CONTRAST PELVIS WO CONTRAST CLINICAL HISTORY:evaluate hematomapatient had recent thoracentesis TECHNIQUE:Multiple axial images of the chest, abdomen, and pelvis were obtained without intravenous contrast. The lack of intravenous contrast reduces the sensitivity of detecting solid organ disease. Sagittal and coronal computerized reformatted images were obtained. CT imaging was performed with iterative reconstruction techniques and/or automated exposure control to reduce radiation dose. COMPARISON:None. IMPRESSION: Chest, abdomen, and pelvis: A moderate basilar hydropneumothorax is present, in association with marked atelectatic changes present involving the right middle lobe and right lower lobe with a moderate amount of fluid present within the right mainstem bronchus right interlobar bronchus. Further evaluation with endoscopy may be of benefit, possibly removing mucous plugs within the main bronchus. Endotracheal tube is in good position. Patchy streaky infiltrates in the right upper lobe is present. The left lung is clear. Inferior vena cava filter is present. Focal abnormality in the liver is not identified. Some degree of iron deposition may be present. Focal abnormality in the spleen is not appreciated. The pancreas and adrenal glands are not well evaluated. The [place] kidneys are extremely atrophic. Large amount of feces is present in the rectum. No definite bowel distention is appreciated. A large hematoma in the proximal right thigh is not adequately evaluated and further evaluation with CT scan of the thigh or ultrasound of this area is recommended. [id number] Procedure Note Hm Interface, Radiology Results Incoming - 01/21/2017 2:10 PM CDT EXAMINATION: CT CHEST WO CONTRAST ABDOMEN WO CONTRAST PELVIS WO CONTRAST CLINICAL HISTORY: evaluate hematoma patient had recent thoracentesis TECHNIQUE: Multiple axial images of the chest, abdomen, and pelvis were obtained without intravenous contrast. The lack of intravenous contrast reduces the sensitivity of detecting solid organ disease. Sagittal and coronal computerized reformatted images were obtained. CT imaging was performed with iterative reconstruction techniques and/or automated exposure control to reduce radiation dose. COMPARISON: None. IMPRESSION: Chest, abdomen, and pelvis: A moderate basilar hydropneumothorax is present, in association with marked atelectatic changes present involving the right middle lobe and right lower lobe with a moderate amount of fluid present within the right mainstem bronchus right interlobar bronchus. Further evaluation with endoscopy may be of benefit, possibly removing mucous plugs within the main bronchus. Endotracheal tube is in good position. Patchy streaky infiltrates in the right upper lobe is present. The left lung is clear. Inferior vena cava filter is present. Focal abnormality in the liver is not identified. Some degree of iron deposition may be present. Focal abnormality in the spleen is not appreciated. The pancreas and adrenal glands are not well evaluated. The [place] kidneys are extremely atrophic. Large amount of feces is present in the rectum. No definite bowel distention is appreciated. A large hematoma in the proximal right thigh is not adequately evaluated and further evaluation with CT scan of the thigh or ultrasound of this area is recommended. [id number] * Pancreatic elastase, fecal (01/20/2017 5:00 AM) Component Value Ref Range Pancreatic elastase 498 >=201 ug/g Comment: REFERENCE INTERVAL: Pancreatic Elastase, Fecal by BETZY Greater than 200 ug/g ........ Normal 100-200 ug/g ................. Moderate to mild pancreatic insufficiency Less than 100 ug/g ........... Severe exocrine pancreatic insufficiency Reference range does not apply for infants less than one month old. A kit change occurred on 11/26/2016 that may generate higher values than the previous assay. The kit uses a monoclonal antibody that increases the accuracy of testing. Porcine enzyme substitution therapy does not interfere with detection of elastase 1 in patient samples. Performed by [facility], [address] [place] [id number] [email or web address], Royal Daily MD - Lab. Director Specimen Performing Laboratory Serum [address] [address] * Zinc level, serum (01/18/2017 2:30 PM) Component Value Ref Range Zinc 37 (L) 60 - 120 ug/dL Comment: INTERPRETIVE INFORMATION: Zinc, Serum or Plasma Circulating zinc concentrations are dependent on albumin status and are depressed with malnutrition. Zinc may also be lowered with infection, inflammation, stress, oral contraceptives, and . Zinc may be elevated with zinc supplementation or fasting. Elevated zinc concentrations may interfere with copper absorption. Test developed and characteristics determined by [facility]. See Compliance Statement B: [employer] Performed by [employer], [address] [place] [address] [email or web address], Royal Daily MD - Lab. Director Specimen Performing Laboratory Blood [address] [address] * Vitamin A level, plasma or serum (01/18/2017 2:30 PM) Component Value Ref Range Vitamin A (retinol) 0.35 0.30 - 1.20 mg/L Retinyl palmitate <0.02 0.00 - 0.10 mg/L Vitamin A interpretation Normal Comment: Test developed and characteristics determined by [employer]. See Compliance Statement B: [employer] Performed by [employer], [address] [place] [address] www.[employer], Royal Daily MD - Lab. Director Specimen Performing Laboratory Plasma specimen [address] [address] * Prealbumin level (01/18/2017 2:30 PM) Component Value Ref Range Prealbumin 10 (L) 16 - 32 mg/dL Specimen Performing Laboratory Serum [facility] DEPARTMENT OF PATHOLOGY AND GENOMIC MEDICINE [address] [place] [address] * Heparin PF4 antibody (IgG) (01/18/2017 10:00 AM) Component Value Ref Range Heparin PF4 Ab OD reading 0.132 0.000 - 0.399 Heparin PF4 Ab, IgG Negative Negative Specimen Performing Laboratory Blood [facility] DEPARTMENT OF PATHOLOGY AND GENOMIC MEDICINE [address] [place] [address] * Fibrin split product (01/18/2017 10:00 AM) Only the most recent of 2 results within the time period is included. Component Value Ref Range Fibrin split product 5 (H) 0 - 3 ug/mL Specimen Performing Laboratory Blood [facility] DEPARTMENT OF PATHOLOGY AND [facility] [address] [place] [address] * D-dimer (01/18/2017 10:00 AM) Only the most recent of 2 results within the time period is included. Component Value Ref Range D-dimer 2.39 (H) 0.00 - 0.40 ug/mL FEU Comment: Units are ug/ml Fibrinogen Equivalent Unit. When combined with low clinical probability, D-dimer results of less than 0.5 ug/ml FEU have a good negative predictive value in excluding PE or DVT. For D-dimer results greater than 0.5 ug/ml FEU further testing is indicated if PE or DVT is suspected clinically. Elevated D-dimer results have been reported in DVT, PE, and DIC cases and may indicate the presence of a clot. D-dimer results may be elevated due to old age, , inflammatory diseases, trauma, post-operative states, sepsis, and malignancies. Specimen Performing Laboratory Blood [facility] DEPARTMENT OF PATHOLOGY AND GENOMIC MEDICINE [address] [place] [address] * Cell count and differential, body fluid (01/16/2017 10:49 AM) Component Value Ref Range Misc fluid type Pleural Color, fluid Yellow Appearance, fluid Slightly hazy RBC, fluid SEE COMMENTComment: 1+ (0 - 500 RBC/CMM) /CMM Nucleated cells, fluid 118 /CMM Fluid mononuclear cell See Diff Neutrophils, fluid 1 % Lymphocytes, fluid 96 % Macrophages, fluid 2 % Plasma cells, fluid 1 % Specimen Performing Laboratory Fluid [facility] DEPARTMENT OF PATHOLOGY AND GENOMIC MEDICINE [address] [place] [address] Narrative pleural fluid * Protein, misc fluid (01/16/2017 10:49 AM) Component Value Ref Range Fluid type Pleural Protein, fluid 2.2 g/dL Comment: Analysis performed on Lyubov 8000 analyzer. This is not an approved methodology for this specimen type; accuracy and clinical significance uncertain. Specimen Performing Laboratory Fluid [facility] DEPARTMENT OF PATHOLOGY AND GENOMIC MEDICINE [address] [place] [address] Narrative pleural fluid * LDH, misc fluid (01/16/2017 10:49 AM) Component Value Ref Range Fluid type Pleural LDH, fluid 96 U/L Comment: Analysis performed on Lyubov 8000 analyzer. This is not an approved methodology for this specimen type; accuracy and clinical significance uncertain. Specimen Performing Laboratory Fluid [facility] DEPARTMENT OF PATHOLOGY AND [facility] [address] [place] [address] Narrative pleural fluid * Glucose level, misc fluid (01/16/2017 10:49 AM) Component Value Ref Range Fluid type Pleural Glucose, fluid 85 mg/dL Comment: Analysis performed on Lyubov 8000 analyzer. This is not an approved methodology for this specimen type; accuracy and clinical significance uncertain. Specimen Performing Laboratory Fluid [facility] DEPARTMENT OF PATHOLOGY AND GENOMIC MEDICINE [address] [place] [address] Narrative pleural fluid * Albumin, misc fluid (01/16/2017 10:49 AM) Component Value Ref Range Fluid type Pleural Albumin, fluid 1.3 g/dL Comment: Analysis performed on Lyubov 8000 analyzer. This is not an approved methodology for this specimen type; accuracy and clinical significance uncertain. Specimen Performing Laboratory Fluid [facility] [place] [address] Narrative pleural fluid * pH, misc fluid (01/16/2017 10:49 AM) Component Value Ref Range Fluid type Pleural pH, fluid 8.00Comment: Reference ranges are not established for Miscellanous specimens. Specimen Performing Laboratory Fluid [facility] DEPARTMENT OF PATHOLOGY AND [facility] [address] [place] [address] Narrative pleural fluid * Arterial blood gas, pulmonary func dept (01/16/2017 7:40 AM) Only the most recent of 2 results within the time period is included. Component Value Ref Range pH, arterial 7.512 (H) 7.350 - 7.450 units pCO2, arterial 37.4 35.0 - 45.0 mmHg pO2, arterial 112.0 (H) 80.0 - 90.0 mmHg O2 saturation, arterial 99.3 95.0 - 100.0 % Base excess, arterial 6.5 (H) -2.0 - 2.0 mEq/L Bicarbonate 30.0 (H) 21.0 - 28.0 mEq/L O2 content 11.9 VOL% FiO2, inspired O2% 0.0 % Carboxyhemoglobin 0.9 0.0 - 1.4 % Comment: Reference Ranges: Carboxyhemoglobin Non smoker: 0.0 - 2.0% Smoker: 2.1 - 5.0% Heavy smoker: 5.1 - 9% Methemoglobin 1.2 (H) 0.0 - 1.0 % Hemoglobin, blood gas 8.5 (L) 14.0 - 18.0 g/dL Specimen Performing Laboratory Blood [facility] DEPARTMENT OF PATHOLOGY AND GENOMIC MEDICINE [address] [place] [address] * CENTRAL LINE (01/15/2017 10:07 PM) Narrative Katie Randolph MD 01/15/20174:02 PM Central Line Insertion Performed by: KATIE RANDOLPH Authorized by: KATIE RANDOLPH [facility] protocol: Procedure explained and questions answered to patient or proxy's satisfaction: yes Relevant documents present and verified: yes Test results available and properly labeled: yes Imaging studies available: no Required blood products, implants, devices, and special equipment available: yes Site/side marked: no Immediately prior to procedure, a time out was called: yes Patient identity confirmed:Arm band Pre-procedure details: Hand hygiene: Hand hygiene performed prior to insertion Sterile barrier technique: All elements of maximal sterile technique followed Skin preparation:2% chlorhexidine Skin preparation agent: Skin preparation agent completely dried prior to procedure Sedation: Sedation Type:Systemic Anesthesia (see MAR for exact dosages): Anesthesia method:None Procedure details: Catheter type:Triple lumen Catheter size:7 Fr Catheter length (cm):20 Catheter site: femoral vein Catheter Site Laterality:Left Patient position:Flat Landmarks identified: yes Ultrasound guidance: yes Sterile ultrasound techniques: Sterile gel and sterile probe covers were used Number of attempts:1 Successful placement: yes Post-procedure details: Post-procedure:Dressing applied and line sutured Assessment:Blood return through all ports and free fluid flow Patient tolerance of procedure:Tolerated well, no immediate complications * US Thoracentesis With Imaging (01/15/2017 5:22 PM) Specimen Performing Laboratory [facility] [address] [place] [address] Narrative EXAMINATION:US THORACENTESIS WITH IMAGING CLINICAL HISTORY:right lung consolidation effusion COMPARISON:None. TECHNIQUE: The procedure's risks, benefits, and alternatives were discussed with the patient and written, informed consent was obtained. Using ultrasound guidance, the right pleural effusion was localized and the overlying posterior chest was prepped and draped in the usual sterile fashion. 1 % buffered lidocaine was used for local anesthesia. A 5 [place] Yueh catheter was inserted into the pleural space and 800 cc of pleural fluid was removed. The fluid was sent to the lab for the requested studies. Post procedure images reveal a small residual effusion. The patient tolerated the procedure without difficulty and was discharged to the radiology recovery area for postprocedure chest x-ray prior to discharge. EBL: None. COMPLICATIONS: None. SPECIMENS: As above. ASSISTANTS: None. IMPRESSION: Technically successful ultrasound-guided right-sided diagnostic and therapeutic thoracentesis. [facility]-[id number] Procedure Note [employer], Radiology Results Incoming - 01/15/2017 5:41 PM CDT EXAMINATION: US THORACENTESIS WITH IMAGING CLINICAL HISTORY: right lung consolidation effusion COMPARISON:None. TECHNIQUE: The procedure's risks, benefits, and alternatives were discussed with the patient and written, informed consent was obtained. Using ultrasound guidance, the right pleural effusion was localized and the overlying posterior chest was prepped and draped in the usual sterile fashion. 1 % buffered lidocaine was used for local anesthesia. A 5 [place] [employer] catheter was inserted into the pleural space and 800 cc of pleural fluid was removed. The fluid was sent to the lab for the requested studies. Post procedure images reveal a small residual effusion. The patient tolerated the procedure without difficulty and was discharged to the radiology recovery area for postprocedure chest x-ray prior to discharge. EBL: None. COMPLICATIONS: None. SPECIMENS: As above. ASSISTANTS: None. IMPRESSION: Technically successful ultrasound-guided right-sided diagnostic and therapeutic thoracentesis. [facility]-[id number] * CENTRAL LINE (01/15/2017 4:42 PM) Narrative Marissa Feng MD 01/15/20173:14 PM Central Line Insertion Performed by: MARISSA FENG Authorized by: SHERYL PALM Consent: Consent obtained:Written Consent given by:Healthcare agent Risks discussed:Arterial puncture, bleeding, infection, incorrect placement, nerve damage and pneumothorax Alternatives discussed:Delayed treatment [facility] protocol: Procedure explained and questions answered to patient or proxy's satisfaction: yes Relevant documents present and verified: yes Test results available and properly labeled: yes Imaging studies available: yes Required blood products, implants, devices, and special equipment available: yes Site/side marked: yes Immediately prior to procedure, a time out was called: yes Patient identity confirmed:Arm band Pre-procedure details: Hand hygiene: Hand hygiene performed prior to insertion Sterile barrier technique: All elements of maximal sterile technique followed Skin preparation:2% chlorhexidine Skin preparation agent: Skin preparation agent completely dried prior to procedure Anesthesia (see MAR for exact dosages): Anesthesia method:Local infiltration Local anesthetic:Lidocaine 1% WITH epi Procedure details: Catheter type:Triple lumen Catheter size:12 Fr Catheter length (cm):16 Catheter site: femoral vein Catheter Site Laterality:Left Site selection rationale:Right groin hematoma, grafts in upper extremities Patient position:Flat Landmarks identified: yes Ultrasound guidance: yes Sterile ultrasound techniques: Sterile gel and sterile probe covers were used Number of attempts:1 Successful placement: no * Aerobic culture (01/15/2017 11:07 AM) Component Value Ref Range Aerobic culture isolate No growth after 3 days. Comment: Specimen Information Specimen Source: Pleural fluid Specimen Site: Right chest Specimen Performing Laboratory Pleural fluid [facility] DEPARTMENT OF PATHOLOGY AND GENOMIC MEDICINE [address] [place] [address] * Anaerobic culture (01/15/2017 11:07 AM) Component Value Ref Range Anaerobic culture isolate No anaerobic organisms isolated. Comment: Specimen Information Specimen Source: Pleural fluid Specimen Site: Right chest Specimen Performing Laboratory Pleural fluid [facility] DEPARTMENT OF PATHOLOGY AND [facility] [address] [place] [address] * CT Head Wo Contrast (01/15/2017 2:34 AM) Only the most recent of 2 results within the time period is included. Specimen Performing Laboratory [facility] [address] [place] [address] Narrative EXAMINATION: CT HEAD WO CONTRAST CLINICAL HISTORY: AMSstroke COMPARISON:CT 01/08/2017. MRI 01/10/2017. TECHNIQUE: Noncontrast enhanced images of the brain were obtained from the skull base to the vertex. Both soft tissue and bone reconstruction algorithms were performed. CT scans are performed using radiation dose reduction techniques (iterative reconstruction and/or automated exposure control). Technical factors are evaluated and adjusted to ensure appropriate moderation of exposure. Automated dose management technology is applied to adjust radiation exposure while achieving a diagnostic quality image. FINDINGS: Moderate generalized brain parenchymal volume loss. Nonspecific moderate hypoattenuation of the supratentorial white matter, likely chronic microangiopathic changes. Mild cerebrovascular calcifications. The brain parenchyma is otherwise unremarkable. The hatfield-white matter differentiation is preserved. No evidence of acute intra or extra-axial hemorrhage, mass, mass effect or acute territorial infarction. There is no acute hydrocephalus. Basal cisterns are patent. No acute soft tissue hematoma or laceration. No skull fractures or aggressive bony lesions. Partially visualized support lines. Trace fluid in right sphenoid sinus. Mastoid air cells are clear. Bilateral cataract surgery. IMPRESSION: Involutional changes as detailed above with no acute intracranial abnormality. [facility]-[id number] Procedure Note Hm Interface, Radiology Results Incoming - 01/15/2017 2:43 AM CDT EXAMINATION: CT HEAD WO CONTRAST CLINICAL HISTORY: AMS stroke COMPARISON: CT 01/08/2017. MRI 01/10/2017. TECHNIQUE: Noncontrast enhanced images of the brain were obtained from the skull base to the vertex. Both soft tissue and bone reconstruction algorithms were performed. CT scans are performed using radiation dose reduction techniques (iterative reconstruction and/or automated exposure control). Technical factors are evaluated and adjusted to ensure appropriate moderation of exposure. Automated dose management technology is applied to adjust radiation exposure while achieving a diagnostic quality image. FINDINGS: Moderate generalized brain parenchymal volume loss. Nonspecific moderate hypoattenuation of the supratentorial white matter, likely chronic microangiopathic changes. Mild cerebrovascular calcifications. The brain parenchyma is otherwise unremarkable. The hatfield-white matter differentiation is preserved. No evidence of acute intra or extra-axial hemorrhage, mass, mass effect or acute territorial infarction. There is no acute hydrocephalus. Basal cisterns are patent. No acute soft tissue hematoma or laceration. No skull fractures or aggressive bony lesions. Partially visualized support lines. Trace fluid in right sphenoid sinus. Mastoid air cells are clear. Bilateral cataract surgery. IMPRESSION: Involutional changes as detailed above with no acute intracranial abnormality. [facility]-[id number] * INTUBATION (01/14/2017 6:50 PM) Narrative Michi Wilkerson MD 01/14/20176:50 PM Intubation Date/Time: 01/14/2017 6:47 PM Performed by: MICHI CANCHOLA Authorized by: MICHI CANCHOLA Consent: Consent obtained:Emergent situation [facility]ent [facility]: [facility] Procedural risks discussed: NA. Alternatives discussed: NA. [place] protocol: Procedure explained and questions answered to patient or proxy's satisfaction: no Relevant documents present and verified: no Test results available and properly labeled: no Imaging studies available: no Required blood products, implants, devices, and special equipment available: no Site/side marked: no Immediately prior to procedure, a time out was called: no Patient identity confirmed:Arm band and hospital-assigned identification number Pre-procedure details: Patient status:Unresponsive Pretreatment medications:Fentanyl and midazolam Induction:Etomidate Paralytic: NONE. Procedure details: Preoxygenation:Bag valve mask CPR in progress: no Intubation method:Oral Technique:Direct laryngoscopy Laryngoscope blade:Mac 3 Grade view:3 Difficult airway?: Yes Tube size (mm):8.0 Tube type:Cuffed Number of attempts:1 Ventilation between attempts: no Cricoid pressure: no Tube visualized through cords: yes Placement assessment: ETT to lip:24 ETT to teeth:23 Tube secured with:ETT chi Breath sounds:Equal and absent over the epigastrium Placement verification: chest rise, condensation, equal breath sounds, ETCO2 detector and tube exhalation CXR findings:ETT in proper place Post-procedure details: Patient tolerance of procedure:Tolerated well, no immediate complications Comments: CXR PENDING . WE WILL F/U * IO LINE INSERTION (01/14/2017 6:07 PM) Kaitlin Gregory NP 01/14/20176:07 PM Intraosseous Line Insertion Date/Time: 01/14/2017 5:50 PM Performed by: HECTOR GREGORY Authorized by: HECTOR GREGORY Consent: Consent obtained:Emergent situation Consent given by: patient intubated. Procedural risks discussed: Pt is intubated. Pre-procedure details: Site preparation:Chlorhexidine Procedure details: Insertion site:R proximal humerus Insertion device:Drill device and 15 gauge IO needle Number of attempts:1 Insertion confirmation:Aspiration of blood/marrow and stability of the needle Post-procedure details: Secured with:Transparent dressing Patient tolerance of procedure:Tolerated well, no immediate complications Comments: Called to bedside by RN needing IO access. Pt lost all IV access. Post intubation. * Glucose level (01/13/2017 9:45 PM) Component Value Ref Range Glucose 337 (H) 65 - 99 mg/dL Specimen Performing Laboratory Plasma specimen [facility] DEPARTMENT OF PATHOLOGY AND GENOMIC MEDICINE [address] [id number] * Pv duplex arterial lower extremity (01/13/2017 5:25 AM) Specimen Performing Laboratory [facility] [address] [place] [address] Narrative Vascular Ultrasound Laboratory Lower Extremity Arterial Duplex Report [address] [address], [place] [address] Pat.Name:SANDRALEILANISHARAD Pat.ID:[id number] .Date: 01/13/2017 Refer.MD:SHERYL PALM MD Exam Time: 5:18:00 AMStudy Type:LE Arterial Height:73inWeight: 140.01lb BSA: 1.85 m2 DOBAge:1930,86Y Sex: MALEBP: 97/53 HR:95 bpmSonogrphr: KRISTIN Curtis, SHAILA Pat. Stat.:Inpatient Room:[place] [address] TapeVol: [place], CPT - 4: [address] Echo Event ID:[id number] Order ID:[id number] Reason for Study:S/P removal of femoral art line with swelling and hematoma noted; eval for pseudoaneurysm. Race:B SUMMARY: DUPLEX SCAN OBSERVATIONS: DOPPLER FINDINGS: ARTERYLOCATIONPSV (cm/sec) RIGHTCommon Femoral Distal-third84 cm/sec Profunda Femoris Proximal-third 111 cm/sec Superficial Femoral Proximal-third 72cm/sec DUPLEX SCAN OBSERVATIONS: RIGHT: There is calcification noted in the common femoral, profunda femoris and superficial femoral artery.Colorflow and Doppler signals are normal in the visualized femoral arteries. The common femoral vein is partially compressible, and dilated with partial echogenic material noted within the lumen of the visualized vein. There is no evidence of pseudoaneurysm or traumatic AV fistula in the right groin. There is evidence of a large hematoma in the right groin. PRELIMINARY FINDINGS: 1. There is evidence of a large hematoma in the right groin. 2. There is evidence of acute partial venous thrombosis of the right common femoral vein. Critical findings reported to NETO Nelson @ 5:30am on 01/13/17. PHYSICIAN INTERPRETATION: Right groin hematoma. No evidence of PSA or AVF. Acute partial DVT of the right CFV. Signed 01/13/2017 09:10 AM Heriberto Black MD, RPVI Procedure Note Interface, Radiology Results In - 01/13/2017 9:10 AM CDT Vascular Ultrasound Laboratory Lower Extremity Arterial Duplex Report [id number] [address] Pat.Name: SHARAD FONTAINE Pat.ID: [id number] .Date: 01/13/2017 Refer.MD: SHERYL PALM MD Exam Time: 5:18:00 AM Study Type:LE Arterial Height: 73in Weight: 140.01lb BSA: 1.85 m2 Age: 1 1930,86Y Sex: MALE BP: 97/53 HR: 95 bpm Sonogrphr: KRISTIN Curtis RCS Pat. Stat.:Inpatient Room: [address] Vol: PR, CPT - 4: [address] Echo Event ID:[id number] Order ID: [id number] Reason for Study:S/P removal of femoral art line with swelling and hematoma noted; eval for pseudoaneurysm. Race: B SUMMARY: DUPLEX SCAN OBSERVATIONS: DOPPLER FINDINGS: ARTERY LOCATION PSV (cm/sec) RIGHT Common Femoral Distal-third 84 cm/sec Profunda Femoris Proximal-third 111 cm/sec Superficial Femoral Proximal-third 72cm/sec DUPLEX SCAN OBSERVATIONS: RIGHT: There is calcification noted in the common femoral, profunda femoris and superficial femoral artery. Colorflow and Doppler signals are normal in the visualized femoral arteries. The common femoral vein is partially compressible, and dilated with partial echogenic material noted within the lumen of the visualized vein. There is no evidence of pseudoaneurysm or traumatic AV fistula in the right groin. There is evidence of a large hematoma in the right groin. PRELIMINARY FINDINGS: 1. There is evidence of a large hematoma in the right groin. 2. There is evidence of acute partial venous thrombosis of the right common femoral vein. Critical findings reported to NETO Nelson @ 5:30am on 01/13/17. PHYSICIAN INTERPRETATION: Right groin hematoma. No evidence of PSA or AVF. Acute partial DVT of the right CFV. Signed 01/13/2017 09:10 AM Heriberto Blakc MD, RPVI * IR Lumbar Puncture by Radiology (01/11/2017 4:46 PM) Specimen Performing Laboratory [facility] [address] [place] [address] Narrative EXAMINATION: IR LUMBAR PUNCTURE CLINICAL HISTORY: CONFUSION DELERIUMALTERED LOCUNEXPLAINED COMPARISON:None TECHNIQUE: Informed consent and a timeout was performed. The patient's lower back was prepped and draped in the usual sterile fashion. Fluoroscopy was used for image guidance for lumbar puncture. FINDINGS: 1% lidocaine was used for local anesthesia. Under direct fluoroscopic guidance, access to the thecal sac was made with a 22-gauge spinal needle at the L3-L4 level. A total of approximately 15 cc of clear slightly yellow-tinged CSF was removed without difficulty. The patient tolerated the procedure well. There were no complications. The sample was sent to the laboratory for analysis as requested. Total fluoroscopy time was 3 seconds. A total of 4 images were obtained IMPRESSION: Successful fluoroscopic guided lumbar puncture as detailed above. [facility]-[id number] Procedure Note Interface, Radiology Results Incoming - 01/12/2017 10:36 AM CDT EXAMINATION: IR LUMBAR PUNCTURE CLINICAL HISTORY: CONFUSION DELERIUM ALTERED LOC UNEXPLAINED COMPARISON: None TECHNIQUE: Informed consent and a timeout was performed. The patient's lower back was prepped and draped in the usual sterile fashion. Fluoroscopy was used for image guidance for lumbar puncture. FINDINGS: 1% lidocaine was used for local anesthesia. Under direct fluoroscopic guidance , access to the thecal sac was made with a 22-gauge spinal needle at the L3-L4 level. A total of approximately 15 cc of clear slightly yellow-tinged CSF was removed without difficulty. The patient tolerated the procedure well. There were no complications. The sample was sent to the laboratory for analysis as requested. Total fluoroscopy time was 3 seconds. A total of 4 images were obtained IMPRESSION: Successful fluoroscopic guided lumbar puncture as detailed above. [facility]-[id number] * Cryptococcal antigen, screen (01/11/2017 4:45 PM) Component Value Ref Range Cryptococcal Ag Negative - No Cryptococcus antigen detected. Comment: Specimen Information Specimen Source: CSF (Spinal Fluid) Specimen Site: No tube number noted Colorless Specimen Performing Laboratory Cerebrospinal fluid [facility] DEPARTMENT OF PATHOLOGY [address] [address] * CSF culture (01/11/2017 4:45 PM) Component Value Ref Range CSF culture isolate No growth after 3 days. Comment: Specimen Information Specimen Source: CSF (Spinal Fluid) Specimen Site: No tube number noted Colorless Specimen Performing Laboratory Cerebrospinal fluid [facility] DEPARTMENT OF PATHOLOGY AND [address] [address] * CSF cell count with differential (01/11/2017 4:45 PM) Component Value Ref Range Color, CSF Colorless Appearance, CSF Clear RBC, CSF 0 0 - 1 /CMM WBC, CSF 1 0 - 5 /CMM CSF mononuclear cell 1/CMM Specimen Performing Laboratory Cerebrospinal fluid [facility] [place] [address] * Protein, CSF (01/11/2017 4:45 PM) Component Value Ref Range Protein, CSF 32 15 - 45 mg/dL Specimen Performing Laboratory Cerebrospinal fluid [facility] [place] [address] * Glucose level, CSF (01/11/2017 4:45 PM) Component Value Ref Range Glucose, CSF 83 (H) 40 - 70 mg/dL Specimen Performing Laboratory Cerebrospinal fluid [facility] DEPARTMENT PATHOLOGY [address] [address] * MRI Brain Wo Contrast (01/10/2017 10:11 AM) Specimen Performing Laboratory [place] [id number] Narrative EXAMINATION: MRI BRAIN WO CONTRAST CLINICAL HISTORY: NEURO DEFICITACUTESINGLEPROGRESSING, STROKE COMPARISON:CT brain from 2 days ago. TECHNIQUE: Multiplanar and multisequence MRI imaging of the brain was obtained without contrast. FINDINGS: There is no evidence of acute infarct, intracranial hemorrhage or mass, hydrocephalus or midline shift. There is old infarct in the right paracentral occipital lobe. There is nonspecific enlargement of the ventricles and extra axial space more prominent in the anterior region without mass effect consistent with involutional changes. There are mild white matter changes. There are small old infarcts in the left cerebellum. There are tiny areas of increased T2 signal intensity bilateral basal ganglia and thalami. I cannot exclude old infarcts. The sella is slightly enlarged and partially empty. Artifacts obscure the cervical spine on the sagittal images. There is pseudophakia. Nonspecific partial opacification of the mastoid air cells which could be from recent or old inflammation or infection among other etiologies. IMPRESSION: No acute infarct or acute findings in the brain or extra axial region. 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 Nonspecific partial opacification of the mastoid air cells which could be from recent or old inflammation or infection among other etiologies. [facility]-[id number] Procedure Note Hm Interface, Radiology Results - 01/10/2017 10:34 AM CDT EXAMINATION: MRI BRAIN WO CONTRAST CLINICAL HISTORY: NEURO DEFICIT ACUTE SINGLE PROGRESSING, STROKE COMPARISON: CT brain from 2 days ago. TECHNIQUE: Multiplanar and multisequence MRI imaging of the brain was obtained without contrast. FINDINGS: There is no evidence of acute infarct, intracranial hemorrhage or mass, hydrocephalus or midline shift. There is old infarct in the right paracentral occipital lobe. There is nonspecific enlargement of the ventricles and extra axial space more prominent in the anterior region without mass effect consistent with involutional changes. There are mild white matter changes. There are small old infarcts in the left cerebellum. There are tiny areas of increased T2 signal intensity bilateral basal ganglia and thalami. I cannot exclude old infarcts. The sella is slightly enlarged and partially empty. Artifacts obscure the cervical spine on the sagittal images. There is pseudophakia. Nonspecific partial opacification of the mastoid air cells which could be from recent or old inflammation or infection among other etiologies. IMPRESSION: No acute infarct or acute findings in the brain or extra axial region. 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 Nonspecific partial opacification of the mastoid air cells which could be from recent or old inflammation or infection among other etiologies. [facility]-[id number] * Syphilis treponemal IgG (01/10/2017 7:38 AM) Component Value Ref Range Syphilis treponemal IgG Non-reactiveComment: Non-reactive: No serological Non-reactive evidence of Syphilis infection Specimen Performing Laboratory Serum [facility] DEPARTMENT OF PATHOLOGY AND GENOMIC MEDICINE [address] [place] [address] * Hepatitis C antibody (01/10/2017 7:38 AM) Component Value Ref Range Hepatitis C Ab Non-reactive Non-reactive Specimen Performing Laboratory Blood [facility] DEPARTMENT OF PATHOLOGY AND GENOMIC MEDICINE [address] [place] [address] * HIV 1, 2 antibody (01/10/2017 7:38 AM) Component Value Ref Range HIV 1, 2 antibody Non-reactive Non-reactive Comment: Starting from July 19 2015, 4th generation HIV screening and confirmation assays are in use at [facility], consistent with the CDC-recommended algorithm. The screening test detects antibodies to HIV-1, HIV-2 and the p24 antigen. Positive screening results will be automatically reflexed to a HIV-1/HIV-2 differentiation assay. Indeterminant HIV-1 results will be further automatically reflexed to a nucleic acid test for detection of acute infection. Western blot will no longer be performed as a confirmation test. For a quick reference guide on the testing algorithm, please refer to: http://stacks.cdc.gov/view/cdc/46278. Specimen Performing Laboratory Blood [facility] DEPARTMENT OF PATHOLOGY AND GENOMIC MEDICINE [address] [place] [address] * Echocardiogram complete w contrast and 3D if needed (01/09/2017 4:09 PM) Specimen Performing Laboratory [facility] [address] [place] [address] Narrative Echocardiography Report [address] [place] [address] Pat.Name:SHARAD FONTAINE Pat.ID:[id number] .Date: 01/09/2017 Refer.MD:GARY GARZA MD Exam Time: 3:08:00 PMStudy Type:Routine Echo Height:73inWeight:140lb BSA: 1.85 m2 DOBAge:1930,86Y Sex: MALEHR: 63 bpm Sonogrphr: SHAILA Palomino Pat. Stat.:Inpatient Room:[id number] Status:Final Echo Event ID:[id number] Order ID:[id number] Reason for Study:Hypotension orhemodynamic instability - Uncertain or suspected cardiac etiology History / Clinical:Hypertension Procedures:2D Echo, Colorflow Doppler Race:B FINDINGS: LV: LV size is normal. LV systolic function is normal. Overall wallmotion is mildly hypokinetic. Estimated EF is 55-59% . RV: RV size is normal. RV systolic function is normal. LA: LA volume is moderately enlarged. RA: RA volume is normal. A catheter is seen. AO: Aortic root diameter is normal. CARMEN: No pericardial effusion. AV: Prosthetic aortic valve not well seen. Normal prosthetic valvevelocity and gradient. Surgical Prosthetic AV Doppler velocityindex is 0.48 (normal>0.25). MV: Mild thickening and calcification of mitral leaflets. Mild mitralannular calcification. Thickened and/or calcified chordae. PV: Pulmonic valve not well seen. TV: No structural TV abnormalities noted. Caruso: LV relaxation is impaired. Other:Insufficient TR jet to estimate PA systolic pressure. MEASUREMENTS: 2D Parasternal [place] LA Ds4 cmIVSd 1.1 cm Ao Rtd 2.7 cmIndex 1.5 cm/m LVPWd1.2 cm LVOT 2 cm LV Twem911.9 g(122-174) LVIDd4.1 cmIndex 2.2 cm/m LVM Index 88.1 g/m2 LVIDs3.3 cmRWT 0.6 LV%fs 18.8 % LV EF Biplane RRCFI526.5 ml (65-193) Index83.5 ml/m LV SV 75.3 ml LVESV 79.2 mlIndex 42.8 ml/m LV EF 48.7 %(63-77) LA Sng Plane LA Area 25 cm2(8.8-23.4) LA Vol 83.6 ml Index45.2 ml/m LA LngAx 6.8 cm RA Sng Plane RA Area 19.8 cm2(8.3-19.5) RA Vol 61 ml Index33 ml/m RA LngAx 6.2 cm DOPPLER AV For Flow/VAN AV pkVel 213.9 cm/s (100-170) AV AC/ET 0.2 AV mnVel 140.7 cm/[place] TVI 41.8 cm AV pkPG 18.3 mmHgAVpkAcRt 28378.6 cm/s2 AV Mean G9.7 mmHgAV DeRt 720.1 cm/s2 AV AC 51 msec (83-118) AV Area1.5 cm2(3-5) AV ET297 msec LVOT For Flow LVOT Area3.1 cm2 LVOT SV 64.2 ml LVOTpkVel 90.8 cm/sHR 63.7 bpm LVOTpkPG 3.3 mmHgLVOT CO 4.1 l/min LVOTmnPG 2 mmHgLVOT CI 2.2 l/m/m2 LVOT TVI20.4 cm Signed 01/09/2017 04:58 PM Puneet Braswell M.D. Procedure Note Interface, Radiology Results In - 01/09/2017 4:58 PM CDT Echocardiography Report [address] [place] [address] Pat.Name: SHARAD FONTAINE.ID: [id number] .Date: 01/09/2017 Refer.MD: GARY GARZA MD Exam Time: 3:08:00 PM Study Type:Routine Echo Height: 73in Weight: 140lb BSA: 1.85 m2 Age: 1 1930,86Y Sex: MALE HR: 63 bpm Sonogrphr: SHAILA Palomino Pat. Stat.:Inpatient Room: [place] [address] Study Status:Final Echo Event ID:[id number] Order ID: [id number] Reason for Study:Hypotension or hemodynamic instability - Uncertain or suspected cardiac etiology History / Clinical:Hypertension Procedures:2D Echo, Colorflow Doppler Race: B FINDINGS: LV: LV size is normal. LV systolic function is normal. Overall wall motion is mildly hypokinetic. Estimated EF is 55-59%. RV: RV size is normal. RV systolic function is normal. LA: LA volume is moderately enlarged. RA: RA volume is normal. A catheter is seen. AO: Aortic root diameter is normal. CARMEN: No pericardial effusion. AV: Prosthetic aortic valve not well seen. Normal prosthetic valve velocity and gradient. Surgical Prosthetic AV Doppler velocity index is 0.48 (normal>0.25). MV: Mild thickening and calcification of mitral leaflets. Mild mitral annular calcification. Thickened and/or calcified chordae. PV: Pulmonic valve not well seen. TV: No structural TV abnormalities noted. Caruso: LV relaxation is impaired. Other: Insufficient TR jet to estimate PA systolic pressure. MEASUREMENTS: 2D Parasternal [place] LA Ds 4 cm IVSd 1.1 cm Ao Rtd 2.7 cm Index 1.5 cm/m LVPWd 1.2 cm LVOT 2 cm LV Mass 162.9 g (122-174) LVIDd 4.1 cm Index 2.2 cm/m LVM Index 88.1 g/m2 LVIDs 3.3 cm RWT 0.6 LV%fs 18.8 % LV EF Biplane LVEDV 154.5 ml (65-193) Index 83.5 ml/m LV SV 75.3 ml LVESV 79.2 ml Index 42.8 ml/m LV EF 48.7 % (63-77) LA Sng Plane LA Area 25 cm2 (8.8-23.4) LA Vol 83.6 ml Index 45.2 ml/m LA LngAx 6.8 cm RA Sng Plane RA Area 19.8 cm2 (8.3-19.5) RA Vol 61 ml Index 33 ml/m RA LngAx 6.2 cm DOPPLER AV For Flow/VAN AV pkVel 213.9 cm/s (100-170) AV AC/ET 0.2 AV mnVel 140.7 cm/s AV TVI 41.8 cm AV pkPG 18.3 mmHg AVpkAcRt 52281.6 cm/s2 AV Mean G 9.7 mmHg AV DeRt 720.1 cm/s2 AV AC 51 msec (83-118) AV Area 1.5 cm2 (3-5) AV ET 297 msec LVOT For Flow LVOT Area 3.1 cm2 LVOT SV 64.2 ml LVOTpkVel 90.8 cm/s HR 63.7 bpm LVOTpkPG 3.3 mmHg LVOT CO 4.1 l/min LVOTmnPG 2 mmHg LVOT CI 2.2 l/m/m2 LVOT TVI 20.4 cm Signed 01/09/2017 04:58 PM Puneet Braswell M.D. * Hemoglobin A1c (01/09/2017 9:12 AM) Only the most recent of 2 results within the time period is included. Component Value Ref Range Hemoglobin A1C 5.9 (H) 4.0 - 5.6 % Comment: HbA1c cutoffs for diagnosing diabetes: 4.0% - 5.6%=normal 5.7% - 6.4%=increased risk for diabetes (prediabetes) >=6.5%=diabetes Goals for glycemic control (ADA 2016) < 7.0% Target for non adults with diabetes. More or less stringent targets may be appropriate for individual patients. <7.5% Target for Children and adolescents with type 1 diabetes. Specimen Performing Laboratory Blood [facility] DEPARTMENT OF PATHOLOGY AND GENOMIC MEDICINE [address] [place] [address] * Total iron binding capacity (01/09/2017 4:40 AM) Component Value Ref Range Iron level 60 59 - 158 ug/dL Iron binding capacity 89 (L) 200 - 400 ug/dL % Saturation 67.4 (H) 20.0 - 40.0 % Specimen Performing Laboratory Blood [facility] DEPARTMENT OF PATHOLOGY [facility] MEDICINE [address] [place], [place] [id number] * Thyroid stimulating hormone (01/09/2017 4:40 AM) Only the most recent of 2 results within the time period is included. Component Value Ref Range TSH 2.56 0.27 - 4.20 uIU/mL Specimen Performing Laboratory Blood [facility] DEPARTMENT OF PATHOLOGY AND [facility] [address] [place] [address] * Parathyroid hormone (01/09/2017 4:40 AM) Component Value Ref Range PTH 88 (H) 15 - 65 pg/mL Specimen Performing Laboratory [facility] PATHOLOGY [place] [id number] * Folate level (01/09/2017 4:40 AM) Component Value Ref Range Folate 13.4 4.8 - 24.2 ng/mL Specimen Performing Laboratory Serum [facility] PATHOLOGY AND [facility] [address] [place] [address] * Ferritin level (01/09/2017 4:40 AM) Component Value Ref Range Ferritin level 3,401 (H) 30 - 400 ng/mL Specimen Performing Laboratory Blood [facility] DEPARTMENT OF PATHOLOGY AND GENOMIC MEDICINE [address] [place] [address] * CENTRAL LINE (01/08/2017 9:10 PM) Kaitlin Best MD 01/08/20174:28 PM Central Line Insertion Performed by: NELL POPE Authorized by: SHERYL PALM Consent: Consent obtained:Written Consent given by:Guardian (Daughter Mrs. Granados) Risks discussed:Arterial puncture, bleeding and infection Alternatives discussed:No treatment and observation [place] protocol: Procedure explained and questions answered to patient or proxy's satisfaction: yes Relevant documents present and verified: yes Test results available and properly labeled: yes Imaging studies available: yes Required blood products, implants, devices, and special equipment available: yes Site/side marked: yes Immediately prior to procedure, a time out was called: yes Patient identity confirmed:Arm band Pre-procedure details: Hand hygiene: Hand hygiene performed prior to insertion Sterile barrier technique: All elements of maximal sterile technique followed Skin preparation:ChloraPrep Skin preparation agent: Skin preparation agent completely dried prior to procedure Anesthesia (see MAR for exact dosages): Anesthesia method:Local infiltration Local anesthetic:Lidocaine 1% w/o epi Procedure details: Catheter type:Quad lumen Catheter size:8.5 Fr Catheter length (cm):20 Catheter site: femoral vein Catheter Site Laterality:Right Patient position:Flat Landmarks identified: yes Ultrasound guidance: yes Sterile ultrasound techniques: Sterile gel and sterile probe covers were used Number of attempts:1 Successful placement: yes Post-procedure details: Post-procedure:Dressing applied and line sutured Assessment:Blood return through all ports Patient tolerance of procedure:Tolerated well, no immediate complications * Insert arterial line (01/08/2017 9:09 PM) Kaitlin Best MD 01/08/20174:29 PM Arterial Line Insertion Date/Time: 01/08/2017 3:35 PM Performed by: NELL POPE Authorized by: SHERYL PALM Consent: Consent obtained:Written Consent given by:Guardian (Mrs. Granados) Risks discussed:Bleeding, infection and ischemia [place] protocol: Procedure explained and questions answered to patient or proxy's satisfaction: yes Relevant documents present and verified: yes Test results available and properly labeled: yes Imaging studies available: yes Required blood products, implants, devices, and special equipment available: yes Site/side marked: yes Immediately prior to procedure a time out was called: yes Patient identity confirmed:Arm band Indications: Indications: hemodynamic monitoring Pre-procedure details: Skin preparation:2% Chlorhexidine Preparation: Patient was prepped and draped in sterile fashion Anesthesia (see MAR for exact dosages): Anesthesia method:Local infiltration Local anesthetic:Lidocaine 1% w/o epi Procedure details: Location:R femoral Gerson's test performed: yes Gerson's test abnormal: no Needle gauge:18 G Placement technique:Seldinger Number of attempts:1 Post-procedure details: Post-procedure:Sutured CMS:Unchanged Patient tolerance of procedure:Tolerated well, no immediate complications * Peripheral smear (01/08/2017 3:08 PM) Component Value Ref Range Peripheral smear Done Comment: Peripheral smear is located in Hematology Laboratory, second floor of [facility]. Specimen Performing Laboratory [facility] DEPARTMENT OF PATHOLOGY AND GENOMIC MEDICINE [address] [place] [address] * Haptoglobin (01/08/2017 3:08 PM) Component Value Ref Range Haptoglobin <10 (L) 30 - 200 mg/dL Specimen Performing Laboratory Plasma specimen [facility] DEPARTMENT OF PATHOLOGY AND GENOMIC MEDICINE [address] [place] [address] * CT Stroke Brain Wo Contrast (01/08/2017 1:35 PM) Specimen Performing [facility] [address] [place] [address] Narrative EXAMINATION: CT STROKE BRAIN WO CONTRAST CLINICAL HISTORY: stroke COMPARISON:01/05/2017. TECHNIQUE: Noncontrast CT of the brain was performed. Both soft tissue and bone reconstruction algorithms are interpreted. CT imaging was performed with iterative reconstruction techniques and/or automated exposure control to reduce radiation dose. FINDINGS: No acute cortical infarct is identified. No intracranial hemorrhage, extra- axial collection, mass effect or hyperdense vessel is seen. There is no acute hydrocephalus. Involutional changes of the brain are noted. Intracranial atherosclerotic calcifications are present. Visualized portions of the paranasal sinuses show no air-fluid level. Mastoid air cells are clear. No fracture or aggressive bony lesion is seen. IMPRESSION: No acute intracranial abnormality identified. Findings were discussed with Dr. Bailey at 01/08/2017 1:37 PM who verbalized understanding. [facility]-[id number] Procedure Note Interface, Radiology Results Incoming - 01/08/2017 1:44 PM CDT EXAMINATION: CT STROKE BRAIN WO CONTRAST CLINICAL HISTORY: stroke COMPARISON: 01/05/2017. TECHNIQUE: Noncontrast CT of the brain was performed. Both soft tissue and bone reconstruction algorithms are interpreted. CT imaging was performed with iterative reconstruction techniques and/or automated exposure control to reduce radiation dose. FINDINGS: No acute cortical infarct is identified. No intracranial hemorrhage, extra- axial collection, mass effect or hyperdense vessel is seen. There is no acute hydrocephalus. Involutional changes of the brain are noted. Intracranial atherosclerotic calcifications are present. Visualized portions of the paranasal sinuses show no air-fluid level. Mastoid air cells are clear. No fracture or aggressive bony lesion is seen. IMPRESSION: No acute intracranial abnormality identified. Findings were discussed with Dr. Bailey at 01/08/2017 1:37 PM who verbalized understanding. [facility]-[id number] * CTA Neck W Wo Contrast (01/08/2017 1:34 PM) Specimen Performing Laboratory [facility] [address] [place] [address] Narrative EXAMINATION:CT ANGIOGRAM NECK W WO CONTRAST CLINICAL HISTORY:stroke COMPARISON:Concurrent head CTA on 01/08/2017. TECHNIQUE: Neck CTA with multiplanar MIP and volumetric rendering after bolus intravenous iodinated contrast administration performed using radiation dose reduction techniques.Technical factors are evaluated and adjusted to ensure appropriate moderation of exposure.Automated dose management technology is applied to adjust radiation exposure while achieving a diagnostic quality image. FINDINGS: There is calcified atherosclerosis along the aortic arch and its proximal branch arteries with no significant stenosis or occlusion. There is calcified atherosclerosis along bilateral carotid bifurcations extending to proximal internal carotid arteries with no significant stenosis or occlusion along bilateral common, internal, and external carotid arteries. There is no significant stenosis or occlusion along bilateral vertebral arteries. The vertebral arteries are codominant. There are postoperative changes from median sternotomy and along the anterior inferior neck with multiple surgical clips. There is a left subclavian central venous catheter. Intravenous contrast injected into the right upper extremity stops at the level of proximal right subclavian vein and extends into right neck collaterals, suggesting possible occlusion/stenosis of the superior vena cava. The thyroid gland is small. Visualized lungs are unremarkable. IMPRESSION: 1. Calcified atherosclerosis with no significant carotid or vertebral artery stenosis. 2. 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 [facility]-[id number] Procedure Note Interface, Radiology Results Incoming - 01/08/2017 3:31 PM CDT EXAMINATION: CT ANGIOGRAM NECK W WO CONTRAST CLINICAL HISTORY: stroke COMPARISON: Concurrent head CTA on 01/08/2017. TECHNIQUE: Neck CTA with multiplanar MIP and volumetric rendering after bolus intravenous iodinated contrast administration performed using radiation dose reduction techniques. Technical factors are evaluated and adjusted to ensure appropriate moderation of exposure. Automated dose management technology is applied to adjust radiation exposure while achieving a diagnostic quality image. FINDINGS: There is calcified atherosclerosis along the aortic arch and its proximal branch arteries with no significant stenosis or occlusion. There is calcified atherosclerosis along bilateral carotid bifurcations extending to proximal internal carotid arteries with no significant stenosis or occlusion along bilateral common, internal, and external carotid arteries. There is no significant stenosis or occlusion along bilateral vertebral arteries. The vertebral arteries are codominant. There are postoperative changes from median sternotomy and along the anterior inferior neck with multiple surgical clips. There is a left subclavian central venous catheter. Intravenous contrast injected into the right upper extremity stops at the level of proximal right subclavian vein and extends into right neck collaterals, suggesting possible occlusion/stenosis of the superior vena cava. The thyroid gland is small. Visualized lungs are unremarkable. IMPRESSION: 1. Calcified atherosclerosis with no significant carotid or vertebral artery stenosis. 2. 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 [facility]-[id number] * CTA Head W Wo Contrast (01/08/2017 1:33 PM) Specimen Performing Laboratory [facility] [address] [place] [address] Narrative EXAMINATION: CT ANGIOGRAM HEAD W WO CONTRAST CLINICAL HISTORY: stroke COMPARISON:None TECHNIQUE:Imaging of the intracranial circulation was obtained from the skull base to the vertex during the arterial phase of enhancement. MIP multiplanar and 3D reconstructed images were performed on a separate workstation. CT imaging was performed with iterative reconstruction techniques and/or automated exposure control to reduce radiation dose. FINDINGS: No proximal branch occlusion or high grade stenosis of the branches of the upper [place], ICAs, or vertebrobasilar system is seen. Intracranial atherosclerotic calcifications are present. No aneurysm or vascular malformation is identified. The major dural venous sinuses opacify normally. The exam is not tailored to evaluate the brain parenchyma.No gross brain parenchymal abnormality is seen. There is no air-fluid level in the sinuses. Osseous calvarium is intact. IMPRESSION: Unremarkable CTA of the brain. [facility]-[id number] Procedure Note Hm Interface, Radiology Results Incoming - 01/08/2017 1:46 PM CDT EXAMINATION: CT ANGIOGRAM HEAD W WO CONTRAST CLINICAL HISTORY: stroke COMPARISON: None TECHNIQUE: Imaging of the intracranial circulation was obtained from the skull base to the vertex during the arterial phase of enhancement. MIP multiplanar and 3D reconstructed images were performed on a separate workstation. CT imaging was performed with iterative reconstruction techniques and/or automated exposure control to reduce radiation dose. FINDINGS: No proximal branch occlusion or high grade stenosis of the branches of the [place], ICAs, or vertebrobasilar system is seen. Intracranial atherosclerotic calcifications are present. No aneurysm or vascular malformation is identified. The major dural venous sinuses opacify normally. The exam is not tailored to evaluate the brain parenchyma. No gross brain parenchymal abnormality is seen. There is no air-fluid level in the sinuses. Osseous calvarium is intact. IMPRESSION: Unremarkable CTA of the brain. [facility]-[id number] * Sedimentation rate (01/08/2017 1:00 PM) Component Value Ref Range Sedimentation rate 6 0 - 10 mm/hr Specimen Performing Laboratory [facility] DEPARTMENT OF PATHOLOGY AND GENOMIC MEDICINE [address] [place] [id number] * ECG ED Preliminary Interpretation - NOT AN ORDER (01/07/2017 12:01 PM) Kaitlin Foster MD 01/07/2017 12:01 PM ECG ED Preliminary Interpretation - Not an Order Performed by: ARTURO FOSTER Authorized by: ARTURO FOSTER ECG reviewed by ED Physician in the absence of a point of care technician: yes Previous ECG: Previous ECG:Compared to current Interpretation: Interpretation: abnormal Rhythm: Rhythm comment:Sinus 2nd degree block ST segments: ST segments:Non-specific T waves: T waves: normal * CT Chest Wo Contrast (10/12/2016 2:12 PM) Specimen Performing Laboratory [facility] [address] [place] [address] Narrative EXAMINATION: CT CHEST WO CONTRAST CLINICAL HISTORY: N18.6 End stage renal disease, Z99.2 Dependence on renal dialysis, Plural Effusion TECHNIQUE:Multiple axial images of the chest were obtained without intravenous contrast. The lack of intravenous contrast reduces the sensitivity of detecting solid organ disease and evaluating vasculature. Sagittal and coronal computerized reformatted images were also obtained. CT scans are performed using radiation dose reduction techniques. Technical factors are evaluated and adjusted to ensure appropriate moderation of exposure. Automated dose management technology is applied to adjust radiation exposure while achieving a diagnostic quality image COMPARISON: None. IMPRESSION: There is a large lateral and posterior basal right pleural effusion.There is overlying atelectatic change in the right lower lobe and in the right middle lobe. There is no definite mediastinal mass or hematoma.Thoracic aorta is atherosclerotic with dense calcifications noted at the level aortic valve. The ascending aorta is dilated measuring 4 cm on the coronal oblique view. The descending thoracic aorta is also atherosclerotic but its diameter was only 2.6 cm. Scans to the upper abdomen demonstrate atrophic kidneys suggesting proximal end stage renal disease. 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 The lack of intravenous contrast reduces the sensitivity of detecting solid organ disease and evaluating vasculature. Sagittal and coronal computerized reformatted images were also obtained. CT scans are performed using radiation dose reduction techniques. Technical factors are evaluated and adjusted to ensure appropriate moderation of exposure. Automated dose management technology is applied to adjust radiation exposure while achieving a diagnostic quality image COMPARISON: None. IMPRESSION: There is a large lateral and posterior basal right pleural effusion. There is overlying atelectatic change in the right lower lobe and in the right middle lobe. There is no definite mediastinal mass or hematoma. Thoracic aorta is atherosclerotic with dense calcifications noted at the level aortic valve. The ascending aorta is dilated measuring 4 cm on the coronal oblique view. The descending thoracic aorta is also atherosclerotic but its diameter was only 2.6 cm. Scans to the upper abdomen demonstrate atrophic kidneys suggesting proximal end stage renal disease. 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 [facility]-[id number] * XR Shoulder 2+ Vw Left (07/23/2016 12:53 PM) Specimen Performing Laboratory [facility] [address] [place] [address] Narrative EXAMINATION:XR SHOULDER 3VW LEFT CLINICAL HISTORY:Left Shoulder x-ray 3 view. Evaluate shooting pain in left shoulder COMPARISON:None available at this time. IMPRESSION: 1. No fracture, malalignment, or osseous destructive lesion of the left shoulder. 2. Joint spaces are maintained. Small marginal osteophytes of the glenoid rim without significant joint space narrowing are in keeping with mild primary osteoarthritis. 3. Mild undersurface spurring of the acromion predisposes to the clinical diagnosis of extrinsic impingement. 4. A tunneled left internal jugular dialysis catheter and left axillary stents and grafts are partially imaged. Aorta is atherosclerotic, and there is a median sternotomy wire. [facility]-[id number] Procedure Note Interface, Radiology Results Incoming - 07/23/2016 2:12 PM CDT EXAMINATION: XR SHOULDER 3 VW LEFT CLINICAL HISTORY: Left Shoulder x-ray 3 view. Evaluate shooting pain in left shoulder COMPARISON: None available at this time. IMPRESSION: 1. No fracture, malalignment, or osseous destructive lesion of the left shoulder. 2. Joint spaces are maintained. Small marginal osteophytes of the glenoid rim without significant joint space narrowing are in keeping with mild primary osteoarthritis. 3. Mild undersurface spurring of the acromion predisposes to the clinical diagnosis of extrinsic impingement. 4. A tunneled left internal jugular dialysis catheter and left axillary stents and grafts are partially imaged. Aorta is atherosclerotic, and there is a median sternotomy wire. [facility]-[id number] after 06/24/2016 Insurance Payer Benefit Subscriber ID Type Phone Address Plan / Group MEDICARE MEDICARE xxxxxxxxxx Medicare [place] PART A AND B CIGNA CIGNA OPEN xxxxxxxxxxx O ACCESS/NET WORK
[2017-06-25 08:34] LABS: BASOPHILS % 0.1 % (0.0-1.0); HEMATOCRIT 39.8 % (38.2-49.6); HEMOGLOBIN 11.7 g/dL (14.0-18.0); LYMPHOCYTES % 3.9 % (18.0-39.1); MEAN CORPUSCULAR HEMOGLOBIN 27.5 pg (28-32); MEAN CORPUSCULAR HGB CONC 29.4 g/dL (31-35); MEAN CORPUSCULAR VOLUME 93.4 fL (81-99); MONOCYTES # (AUTO) 0.9 (0.2-0.8); MONOCYTES % 3.6 % (4.4-11.3); NEUTROPHILS # (AUTO) 22.7 (2.1-6.9); PLATELET COUNT 168 x10e3/uL (140-360); RED BLOOD COUNT 4.26 x10e6/uL (4.3-5.7); RED CELL DISTRIBUTION WIDTH 16.6 % (11.7-14.4)
[2017-06-25 08:50] LABS: ALBUMIN 2.3 g/dL (3.5-5.0); ALBUMIN/GLOBULIN RATIO 0.6 (0.8-2.0); ANION GAP 12.7 mmol/L (8-16); CALCIUM 8.3 mg/dL (8.4-10.2); CREATININE, SERUM 3.04 mg/dL (0.72-1.25); MAGNESIUM 1.8 MG/DL (1.3-2.1); PHOSPHORUS 3.1 MG/DL (2.3-4.7); POTASSIUM 3.7 mmol/L (3.5-5.1)
--- NOTE | 2017-06-25 08:55 | Diagnostic Imaging Report ---
PROCEDURE: A single AP view of the chest. COMPARISON: None. INDICATIONS: RESPIRATORY FAILURE FINDINGS: Lines/tubes: Tracheostomy tube are present. There are sternotomy wire sutures. Tunneled left IJ hemodialysis catheter. There are 2 vascular stents in the left axilla. Lungs: Diffuse pulmonary edema. Pleura: There is no pleural effusion or pneumothorax. Heart and mediastinum: The heart and the mediastinum are unremarkable. Bones: No acute bony abnormality. IMPRESSION: Diffuse pulmonary edema may represent volume overload. Tyler Almodovar D.O. Dictated by: Tyler Almodovar D.O. on 06/25/2017 at 8:55 Electronically approved by: Tyler Almodovar D.O. on 06/25/2017 at 8:55
[2017-06-25] MEDS ORDERED: PIPER-TAZ 3.375 GM 50 ML IV ONE (09:30)
[2017-06-25] MEDS ORDERED: VANCOMYCIN 1GM/NS 250 ML 250 ML IV ONE (09:50)
[2017-06-25] MEDS ORDERED: NOREPINEPHRINE BITARTRATE/ NS 250 ML IV PRN (10:30)
[2017-06-25] MEDS ORDERED: HEPARIN 25,000 UNIT/D5W 250ML 250 ML IV STA (12:34)
[2017-06-25 12:45] LABS: INR 1.25; PROTHROMBIN TIME 14.8 seconds (11.9-14.5)
[2017-06-25] MEDS ORDERED: HEPARIN SOD (PORCINE) 1000 UNIT/ML SDV IV ONE ×2 (12:45→13:00)
[2017-06-25] MEDS ORDERED: HEPARIN SOD/SOD CHLORIDE 1,000 ML IV SCH (12:45)
[2017-06-25] MEDS ORDERED: HEPARIN 25,000U/0.45% NS 250ML 1,500 UNIT in SODIUM CHLORIDE 0.9% 250ML 0 ML IV SCH (12:45)
[2017-06-25 12:46] LABS: PARTIAL THROMBOPLASTIN TIME 34.2 seconds (23.8-35.5)
[2017-06-25 14:18] LABS: ABG PCO2 58 mmHg (41-51); ABG PH 7.32 (7.31-7.41)
[2017-06-25 14:19] LABS: ABG HCO3 30 mmol/L (23-28); ABG PO2 327 mmHg (80-105)
== END 2017-06-25 13:01 | disposition short-term general hospital (02) ==
LOC: ER 08:14
DX: R41.82 Altered mental status, unspecified (principal); J96.01 Acute respiratory failure with hypoxia; J18.9 Pneumonia, unspecified organism; A41.9 Sepsis, unspecified organism; R09.02 Hypoxemia; I12.0 Hypertensive chronic kidney disease with stage 5 chronic kidney disease or end stage renal disease; N18.6 End stage renal disease; Z99.2 Dependence on renal dialysis
CPT/HCPCS: 36415; 36600; 51700; 71045; 80053; 82805; 83605; 83735; 83880; 84100; 84484; 85025; 85610; 85730; 87040; 93005; 93970; 99285; J1644; J2543; J3370